=== PATIENT | female | born 1935 | race Caucasian/White ===

== ENCOUNTER 2020-05-23 09:46 | Inpatient (IN) | payer MEDICARE, SELFPAY ==
[2020-05-23] VITALS (8 sets, daily range): BP systolic 123–149; BP diastolic 50–74; PULSE 66–99; RESP 16–22; TEMP 36.4–37; O2SAT 93–100; BMI 31.0
--- NOTE | 2020-05-23 | CT_ITS ---
EXAMINATION: CT HEAD WITHOUT CONTRAST (STROKE PROTOCOL) CLINICAL INFORMATION: Stroke protocol. COMPARISON: January 15, 2020 TECHNIQUE: Contiguous axial imaging was performed from the skull base to vertex without intravenous administration of contrast. This CT examination was performed using dose optimization techniques as appropriate, variously including the following: *Automated exposure control *Adjustment of mA and/or kV according to patient size (this includes techniques or standardized protocols for targeted exams where dose is matched to indication/reason for exam; i.e. extremities or head) *Use of iterative reconstruction technique DLP: 805 mGy-cm FINDINGS: There is no intracranial hemorrhage, hematoma, or extra-axial fluid collection. The ventricles, sulci, and cisterns are age-related prominence. There is a large amount of periventricular white matter low density consistent with microangiopathy.. There is no acute infarct or mass lesion. The calvarium appears intact. There is no pneumocephalus or orbital emphysema. The visualized sinuses and middle ears and mastoid air cells show no significant mucosal thickening. There are no air-fluid levels. IMPRESSION: No acute intracranial pathology. 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 This critical result was discussed with Ama Segovia at 9:50 AM hours on May 23, 2020. It was ascertained that the content and urgency of the report was understood at the time of direct communication.
--- NOTE | 2020-05-23 | CT_ITS ---
EXAMINATION: CT CHEST WITHOUT CONTRAST CLINICAL INFORMATION: Fall COMPARISON: March 18, 2020 TECHNIQUE: Multidetector volumetric CT imaging of the chest was done. Axial MIP volume rendering provided. Sagittal and coronal reformatted images were obtained. This CT examination was performed using dose optimization techniques as appropriate, variously including the following: *Automated exposure control *Adjustment of mA and/or kV according to patient size (this includes techniques or standardized protocols for targeted exams where dose is matched to indication/reason for exam; i.e. extremities or head) *Use of iterative reconstruction technique DLP: 350 mGy-cm FINDINGS: LUNGS: There are bilateral changes of centrilobular and paraseptal emphysema most prominent within the upper lobes bilaterally. There are some regions of nonspecific groundglass opacity present. There is a region of more prominent bronchial wall thickening and possible acute interstitial disease seen within the posterior aspect of the left upper lobe and superior segment of the left lower lobe which could be related to atelectatic change or acute interstitial lung disease. There is some mild cylindrical bronchiectasis present bilaterally with some interstitial scarring. There are some scattered calcified granulomas present. There are some sub-4 mm density is noted. Central airways patent. MEDIASTINUM: Heart normal size. No thoracic aortic aneurysm. There is moderate calcified plaque involving the thoracic aorta with nonocclusive plaque in the aortic arch. Coronary artery calcification is present. No mediastinal or hilar lymphadenopathy. No pericardial effusion. PLEURA: There is no pleural effusion. No pleural mass or thickening. AXILLA: No lymphadenopathy. UPPER ABDOMEN: Status post cholecystectomy. No adrenal gland masses. OSSEOUS STRUCTURES: Status post right shoulder surgery. There is multilevel degenerative marginal spurring and bridging or vertebral bodies within the thoracic spine. There are some stable approximately 50% anterior vertebral body fractures T5 and T6. Multiple endplate irregularities are present within the remainder of the visualized spine. IMPRESSION: Significant changes of emphysema as described. Interstitial lung disease some of which appears to be acute within the posterior left upper lobe and superior segment of the left lower lobe. Old granulomatous disease. Degenerative change of the spine as described.
--- NOTE | 2020-05-23 | CT_ITS ---
EXAMINATION: CT CERVICAL SPINE WITHOUT CONTRAST CLINICAL INFORMATION: Fall COMPARISON: June 05, 2019 TECHNIQUE: CT cervical spine with coronal and sagittal reconstruction. This CT examination was performed using dose optimization techniques as appropriate, variously including the following: *Automated exposure control *Adjustment of mA and/or kV according to patient size (this includes techniques or standardized protocols for targeted exams where dose is matched to indication/reason for exam; i.e. extremities or head) *Use of iterative reconstruction technique DLP: 405 mGy-cm FINDINGS: No acute cervical spine fracture identified. No abnormal prevertebral soft tissue swelling. Paraspinal muscle/fat planes intact. There is some pannus calcification present dorsal aspect of the dens. There is some cystic change seen within the dens. There appears be fusion of the posterior elements of C3 and C4. There is facet arthropathy seen bilaterally C2-C5. There is some posterior neural foraminal narrowing at multiple levels related to this. There is a left submandibular soft tissue mass measuring approximately 3.1 x 1.9 x 2.4 cm in size. This is without significant change dating back to February 11, 2015. Pterygoid plates intact. There are a few opacified left mastoid air cells. IMPRESSION: No acute cervical spine fracture. Cervical spondylosis as described. Essentially stable soft tissue density left submandibular region.
--- NOTE | 2020-05-23 09:35 | ECG_ITS ---
Test Reason : ?STROKE Blood Pressure : / mmHG Vent. Rate : 074 BPM Atrial Rate : 074 BPM P-R Int : 158 ms QRS Dur : 076 ms QT Int : 400 ms P-R-T Axes : 040 -18 010 degrees QTc Int : 444 ms Normal sinus rhythm Moderate voltage criteria for LVH, may be normal variant Borderline ECG When compared with ECG of 16-MAY-2020 01:43, No significant change was found Referred By: Alisson Lyn Electronically Signed By:STEPHEN DAVIDSON
--- NOTE | 2020-05-23 09:37 | ED_ITS ---
HPI - Neuro Symptoms/Deficit General Chief Complaint: Stroke Stated Complaint: stroke Time Seen by Provider: 05/23/20 09:56 Source: EMS Mode of arrival: EMS Limitations: altered mental status History of Present Illness HPI Narrative: neighbor found her on the ground at this time altered last known normal unknown, hx of same in past, patient is sleepy on arrival to ED Onset (ago): unknown Timing confirmed by: other (neighbor) Location: other ([facility]) History of same: Yes Severity: moderate Relieving factors: none Exacerbating factors: none Associated symptoms: confusion and weakness Treatments Prior to Arrival: none Related Data Allergies Allergy/AdvReac Type Severity Reaction Status Date / Time codeine [Codeine] Allergy Mild HEADACHE, Unverified 05/07/20 15:50 RASH, NAUSEA baclofen Allergy Unknown tremors Verified 04/01/20 00:00 codeine Allergy Unknown rash, Uncoded 06/20/17 00:00 vomiting, [place] Codeine Sulfate Allergy Unknown Uncoded 04/01/20 00:00 eggs Allergy Unknown Uncoded 06/20/17 00:00 Review of Systems Review of Systems: ROS unable to be obtained due to altered mental status [facility] Past Medical History Attestation statement: The following information was validated with the patient. Source: old records reviewed Medical History (Updated 05/23/20 @ 12:32 by Alisson Lyn DO) Anxiety CAD (coronary artery disease) Carpal tunnel syndrome Chronic back pain COPD (chronic obstructive pulmonary disease) CVA (cerebral vascular accident) Diabetes HTN (hypertension) Hyperlipemia Nonepileptic episode Restless leg Surgical History (Updated 05/23/20 @ 09:43 by Alisson Lyn DO) H/O carotid endarterectomy S/P cholecystectomy Social History Social History (Updated 05/23/20 @ 09:41 by Alisson Lyn DO) Alcohol intake: never Smoking Status: Former smoker Advance Directives: No Advance Directives Information Provided: No Physical Exam Vital Signs and I&O and Narrative: Vital Signs and I&O: Vital Signs Temp 98.6 F 05/23/20 10:47 Pulse 66 05/23/20 10:47 Resp 16 05/23/20 10:47 BP 144/56 H 05/23/20 10:47 Pulse Ox 95 05/23/20 10:47 Intake & Output 05/22/20 05/23/20 05/23/20 18:59 06:59 18:59 Weight 77 kg Body Mass Index 31.0 Appearance: Somnolent. Oriented X2. No acute distress. Eyes: Pupils equal, round and reactive to light. ENT: dry MM. Neck: Normal inspection. Neck supple. CVS: Normal heart rate and rhythm. Pulses normal. Respiratory: No respiratory distress. Breath sounds decreased bilaterally Abdomen: Soft and nontender. Skin: Skin warm and dry. Normal skin color. Normal skin turgor. Extremities: No lower extremity edema. No lower extremity edema. Neuro: somnolent oriented x 2. no new motor deficitis mild L sided drift and mild L sided lower facial droop. No sensory deficit. but given AMS it is not reliable seems to be moving all extremities and following commands Course Reevaluation(s) Reevaluation #1: ABG: ph 7.43 pCO2 44 PO2 64 HCO3 28 BE 4.2 Reevaluation #2: lower back at this time but much more awake, unsure of what happened states she got up to use bathroom then doesn't remember anything until now, neighbor found her down unsure if this was syncope, she has underlying pseudoseizures but with lactic acid did she seizure, given empiric rocephin as well but no obvious infection at this time, ?new GGO on CT chest MDM - Neuro Symptoms/Deficit MDM Narrative Medical decision making narrative: frequent presentation of AMS being found down, here with same no obvious trauma at this time will need labs, cultures, CT scan of head and neck for trauma, given unknown last well time and found down without new focal deficits not a candidate for tPa Lab Data Result diagrams: 05/23/20 10:03 05/23/20 10:04 Labs: Lab Results 05/23/20 05/23/20 05/23/20 Range/Units 09:47 09:47 10:03 WBC 12.9 H (4.8-10.8) X10*3/uL RBC 4.22 (4.20-5.50) X10*6/uL Hgb 9.8 L (12.0-16.0) g/dl Hct 33.9 L (37-47) % MCV 80.3 (80-98) fL MCH 23.2 L (27.0-33.0) pg MCHC 28.9 L (31.0-35.0) g/dl RDW 21.2 H (11.0-16.0) % Plt Count 326 (160-400) X10*3/uL MPV 10.1 (9.4-12.3) fL Immature Gran % (Auto) 0.9 H (0.0-0.4) % Neut % (Auto) 71.3 (45-73) % Lymph % (Auto) 18.9 L (20-40) % Mccreary % (Auto) 6.7 (2-11) % Eos % (Auto) 2.0 (0-4) % Baso % (Auto) 0.2 (0-2) % Neut # (Auto) 9.2 H (2.0-8.3) X10*3/uL Lymph # (Auto) 2.4 (1.2-4.9) X10*3/uL Mccreary # (Auto) 0.9 (0.1-1.2) X10*3/uL Eos # (Auto) 0.3 (0.0-0.4) X10*3/uL Baso # (Auto) 0.0 (0.0-0.2) X10*3/uL Abs Immat Gran (auto) 0.12 H (0.00-0.03) X10*3/uL Absolute Nucleated RBC 0.000 (0.0-0.012) X10*3/uL Nucleated RBC % (auto) 0.0 (0.0-0.2) /100WBC PT (10.8-13.0) SEC Whole Blood PT 11.6 (11.1-13.5) sec INR (0.9-1.1) Whole Blood INR 1.0 (0.9-1.1) APTT (24.1-38.0) SEC ABG pH (7.35-7.45) ABG pCO2 (32-45) mmhg ABG pO2 (83-108) mmhg ABG HCO3 (22-26) mmol/l ABG O2 Saturation % ABG Base Excess Oxygen Given Sodium (135-145) mmol/L Potassium (3.3-5.1) mmol/l Chloride (96-108) mmol/L Carbon Dioxide (22-29) mmol/L Anion Gap (12-20) BUN (9-16) mg/dL Creatinine (0.5-1.4) mg/dL Estim Creat Clear Calc Estimated GFR POC Glucose 259 H (60-115) mg/dL Random Glucose (60-115) mg/dL Lactic Acid (0.5-2.0) mmol/L Calcium (8.4-10.2) mg/dL Magnesium (1.6-2.6) mg/dL Total Bilirubin (0.0-1.0) mg/dL Direct Bilirubin (0.0-0.5) mg/dL AST (5-31) U/L ALT (0-31) U/L Alkaline Phosphatase (39-117) U/L Ammonia (13-55) umol/L Total Creatine Kinase (26-140) U/L Troponin I High Sens (<3.5-17.0) ng/L B-Natriuretic Peptide (<100) pg/mL Total Protein (6.5-8.0) g/dL Albumin (3.5-5.0) g/dL Lipase (8-78) U/L Urine Color Urine Appearance Urine pH (5.0-8.0) Ur Specific Helper (1.005-1.025) Urine Protein (NEG-TRACE) MG/DL Urine Glucose (UA) (NEG) MG/DL Urine Ketones (NEG) MG/DL Urine Blood (NEG) Urine Nitrite (NEG) Ur Leukocyte Esterase (NEG) Urine RBC (0) /HPF Urine WBC (0-4) /HPF Ur Squamous Epith Cells /LPF Ur Renal Epithelial Cell /LPF Urine Bacteria /LPF 05/23/20 05/23/20 05/23/20 Range/Units 10:03 10:03 10:04 WBC (4.8-10.8) X10*3/uL RBC (4.20-5.50) X10*6/uL Hgb (12.0-16.0) g/dl Hct (37-47) % MCV (80-98) fL MCH (27.0-33.0) pg MCHC (31.0-35.0) g/dl RDW (11.0-16.0) % Plt Count (160-400) X10*3/uL MPV (9.4-12.3) fL Immature Gran % (Auto) (0.0-0.4) % Neut % (Auto) (45-73) % Lymph % (Auto) (20-40) % Mccreary % (Auto) (2-11) % Eos % (Auto) (0-4) % Baso % (Auto) (0-2) % Neut # (Auto) (2.0-8.3) X10*3/uL Lymph # (Auto) (1.2-4.9) X10*3/uL Mccreary # (Auto) (0.1-1.2) X10*3/uL Eos # (Auto) (0.0-0.4) X10*3/uL Baso # (Auto) (0.0-0.2) X10*3/uL Abs Immat Gran (auto) (0.00-0.03) X10*3/uL Absolute Nucleated RBC (0.0-0.012) X10*3/uL Nucleated RBC % (auto) (0.0-0.2) /100WBC PT 11.6 (10.8-13.0) SEC Whole Blood PT (11.1-13.5) sec INR 1.0 (0.9-1.1) Whole Blood INR (0.9-1.1) APTT 27.0 (24.1-38.0) SEC ABG pH (7.35-7.45) ABG pCO2 (32-45) mmhg ABG pO2 (83-108) mmhg ABG HCO3 (22-26) mmol/l ABG O2 Saturation % ABG Base Excess Oxygen Given Sodium 139 (135-145) mmol/L Potassium 3.4 (3.3-5.1) mmol/l Chloride 95 L (96-108) mmol/L Carbon Dioxide 30 H (22-29) mmol/L Anion Gap 17 (12-20) BUN 44 H (9-16) mg/dL Creatinine 1.37 (0.5-1.4) mg/dL Estim Creat Clear Calc 30.3 Estimated GFR 37 POC Glucose (60-115) mg/dL Random Glucose 275 H (60-115) mg/dL Lactic Acid (0.5-2.0) mmol/L Calcium 9.0 (8.4-10.2) mg/dL Magnesium 1.5 L (1.6-2.6) mg/dL Total Bilirubin 0.5 (0.0-1.0) mg/dL Direct Bilirubin 0.3 (0.0-0.5) mg/dL AST 71 H (5-31) U/L ALT 55 H (0-31) U/L Alkaline Phosphatase 114 (39-117) U/L Ammonia (13-55) umol/L Total Creatine Kinase 37 (26-140) U/L Troponin I High Sens (<3.5-17.0) ng/L B-Natriuretic Peptide (<100) pg/mL Total Protein 6.6 (6.5-8.0) g/dL Albumin 3.8 (3.5-5.0) g/dL Lipase 8 (8-78) U/L Urine Color YELLOW Urine Appearance CLEAR Urine pH 6.5 (5.0-8.0) Ur Specific Helper 1.010 (1.005-1.025) Urine Protein NEG (NEG-TRACE) MG/DL Urine Glucose (UA) NEG (NEG) MG/DL Urine Ketones NEG (NEG) MG/DL Urine Blood NEG (NEG) Urine Nitrite NEG (NEG) Ur Leukocyte Esterase NEG (NEG) Urine RBC 0 (0) /HPF Urine WBC 0 (0-4) /HPF Ur Squamous Epith Cells 1+ /LPF Ur Renal Epithelial Cell 1+ /LPF Urine Bacteria NONE /LPF 05/23/20 05/23/20 05/23/20 Range/Units 10:04 10:04 10:04 WBC (4.8-10.8) X10*3/uL RBC (4.20-5.50) X10*6/uL Hgb (12.0-16.0) g/dl Hct (37-47) % MCV (80-98) fL MCH (27.0-33.0) pg MCHC (31.0-35.0) g/dl RDW (11.0-16.0) % Plt Count (160-400) X10*3/uL MPV (9.4-12.3) fL Immature Gran % (Auto) (0.0-0.4) % Neut % (Auto) (45-73) % Lymph % (Auto) (20-40) % Mccreary % (Auto) (2-11) % Eos % (Auto) (0-4) % Baso % (Auto) (0-2) % Neut # (Auto) (2.0-8.3) X10*3/uL Lymph # (Auto) (1.2-4.9) X10*3/uL Mccreary # (Auto) (0.1-1.2) X10*3/uL Eos # (Auto) (0.0-0.4) X10*3/uL Baso # (Auto) (0.0-0.2) X10*3/uL Abs Immat Gran (auto) (0.00-0.03) X10*3/uL Absolute Nucleated RBC (0.0-0.012) X10*3/uL Nucleated RBC % (auto) (0.0-0.2) /100WBC PT (10.8-13.0) SEC Whole Blood PT (11.1-13.5) sec INR (0.9-1.1) Whole Blood INR (0.9-1.1) APTT (24.1-38.0) SEC ABG pH (7.35-7.45) ABG pCO2 (32-45) mmhg ABG pO2 (83-108) mmhg ABG HCO3 (22-26) mmol/l ABG O2 Saturation % ABG Base Excess Oxygen Given Sodium (135-145) mmol/L Potassium (3.3-5.1) mmol/l Chloride (96-108) mmol/L Carbon Dioxide (22-29) mmol/L Anion Gap (12-20) BUN (9-16) mg/dL Creatinine (0.5-1.4) mg/dL Estim Creat Clear Calc Estimated GFR POC Glucose (60-115) mg/dL Random Glucose (60-115) mg/dL Lactic Acid 3.9 H* (0.5-2.0) mmol/L Calcium (8.4-10.2) mg/dL Magnesium (1.6-2.6) mg/dL Total Bilirubin (0.0-1.0) mg/dL Direct Bilirubin (0.0-0.5) mg/dL AST (5-31) U/L ALT (0-31) U/L Alkaline Phosphatase (39-117) U/L Ammonia 39 (13-55) umol/L Total Creatine Kinase (26-140) U/L Troponin I High Sens 6.6 (<3.5-17.0) ng/L B-Natriuretic Peptide 30 (<100) pg/mL Total Protein (6.5-8.0) g/dL Albumin (3.5-5.0) g/dL Lipase (8-78) U/L Urine Color Urine Appearance Urine pH (5.0-8.0) Ur Specific Helper (1.005-1.025) Urine Protein (NEG-TRACE) MG/DL Urine Glucose (UA) (NEG) MG/DL Urine Ketones (NEG) MG/DL Urine Blood (NEG) Urine Nitrite (NEG) Ur Leukocyte Esterase (NEG) Urine RBC (0) /HPF Urine WBC (0-4) /HPF Ur Squamous Epith Cells /LPF Ur Renal Epithelial Cell /LPF Urine Bacteria /LPF 05/23/20 Range/Units 10:30 WBC (4.8-10.8) X10*3/uL RBC (4.20-5.50) X10*6/uL Hgb (12.0-16.0) g/dl Hct (37-47) % MCV (80-98) fL MCH (27.0-33.0) pg MCHC (31.0-35.0) g/dl RDW (11.0-16.0) % Plt Count (160-400) X10*3/uL MPV (9.4-12.3) fL Immature Gran % (Auto) (0.0-0.4) % Neut % (Auto) (45-73) % Lymph % (Auto) (20-40) % Mccreary % (Auto) (2-11) % Eos % (Auto) (0-4) % Baso % (Auto) (0-2) % Neut # (Auto) (2.0-8.3) X10*3/uL Lymph # (Auto) (1.2-4.9) X10*3/uL Mccreary # (Auto) (0.1-1.2) X10*3/uL Eos # (Auto) (0.0-0.4) X10*3/uL Baso # (Auto) (0.0-0.2) X10*3/uL Abs Immat Gran (auto) (0.00-0.03) X10*3/uL Absolute Nucleated RBC (0.0-0.012) X10*3/uL Nucleated RBC % (auto) (0.0-0.2) /100WBC PT (10.8-13.0) SEC Whole Blood PT (11.1-13.5) sec INR (0.9-1.1) Whole Blood INR (0.9-1.1) APTT (24.1-38.0) SEC ABG pH 7.44 (7.35-7.45) ABG pCO2 44 (32-45) mmhg ABG pO2 64 L (83-108) mmhg ABG HCO3 29 H (22-26) mmol/l ABG O2 Saturation 91.2 % ABG Base Excess 4.2 Oxygen Given 3 L Sodium (135-145) mmol/L Potassium (3.3-5.1) mmol/l Chloride (96-108) mmol/L Carbon Dioxide (22-29) mmol/L Anion Gap (12-20) BUN (9-16) mg/dL Creatinine (0.5-1.4) mg/dL Estim Creat Clear Calc Estimated GFR POC Glucose (60-115) mg/dL Random Glucose (60-115) mg/dL Lactic Acid (0.5-2.0) mmol/L Calcium (8.4-10.2) mg/dL Magnesium (1.6-2.6) mg/dL Total Bilirubin (0.0-1.0) mg/dL Direct Bilirubin (0.0-0.5) mg/dL AST (5-31) U/L ALT (0-31) U/L Alkaline Phosphatase (39-117) U/L Ammonia (13-55) umol/L Total Creatine Kinase (26-140) U/L Troponin I High Sens (<3.5-17.0) ng/L B-Natriuretic Peptide (<100) pg/mL Total Protein (6.5-8.0) g/dL Albumin (3.5-5.0) g/dL Lipase (8-78) U/L Urine Color Urine Appearance Urine pH (5.0-8.0) Ur Specific Helper (1.005-1.025) Urine Protein (NEG-TRACE) MG/DL Urine Glucose (UA) (NEG) MG/DL Urine Ketones (NEG) MG/DL Urine Blood (NEG) Urine Nitrite (NEG) Ur Leukocyte Esterase (NEG) Urine RBC (0) /HPF Urine WBC (0-4) /HPF Ur Squamous Epith Cells /LPF Ur Renal Epithelial Cell /LPF Urine Bacteria /LPF ECG Data Attestation: I personally reviewed and interpreted this ECG as follows: ECG interpretation date: 05/23/20 ECG interpretation time: 09:56 Interpretation: Rate: 74 Rhythm: NSR [place]: left, LVH Normal P waves. Normal REBEL. Normal QRS complex. ST T wave : normal qTC: normal prior studies: no change, no ischemia The study has been interpreted contemporaneously by me. . NIH Stroke Scale Internal: Initial- Upon Arrival Level of Consciousness: Not Alert; but arousable by minor stimulation Level of Consciousness Questions: Answers one question correctly Level of Consciousness Commands: Performs both tasks correctly Best Gaze: Normal Visual: No visual loss Facial Palsy: Minor paralyis Motor Arm (Right): No drift Motor Arm (Left): Drift Motor Leg (Right): No drift Motor Leg (Left): Drift Limb Ataxia: Absent Sensory: Normal Best Language: No aphasia Dysarthia: Mild to moderate dysarthria Extinction and Inattention: No abnormality Score: 6 Discharge Plan Discharge Clinical Impression: Acidosis, lactic, Acute confusion Syncope Qualifiers: Syncope type: unspecified Qualified Code(s): R55 - Syncope and collapse Patient Disposition: Admitted As Inpatient
[2020-05-23 09:57] LABS: Prothrombin Time Whole Bld POC 11.6 sec (11.1-13.5)
[2020-05-23 09:59] LABS: Glucose, Whole Blood 259 mg/dL (60-115)
[2020-05-23 10:30] LABS: MANUAL DIFF FLAG NO
[2020-05-23 10:36] LABS: Glucose Urine UA NEG (NEG); Leukocyte Esterase Urine NEG (NEG); Nitrite Urine NEG (NEG); PH 6.5 (5.0-8.0); Urine Blood NEG (NEG); Urine Ketones NEG (NEG); Urine Protein NEG (NEG-TRACE)
[2020-05-23 10:38] LABS: Basophils Percent Auto 0.2 % (0-2); Eosinophils Absolute Auto 0.3 X10*3/uL (0.0-0.4); Hematocrit 33.9 % (37-47); Hemoglobin 9.8 g/dl (12.0-16.0); Imm Gran Abs Auto 0.12 X10*3/uL (0.00-0.03); Imm Gran Pct Auto 0.9 % (0.0-0.4); Lymphocytes Absolute Auto 2.4 X10*3/uL (1.2-4.9); Lymphocytes Percent Auto 18.9 % (20-40); Mean Corpuscular HGB Conc 28.9 g/dl (31.0-35.0); Mean Corpuscular Hemoglobin 23.2 pg (27.0-33.0); Mean Corpuscular Volume 80.3 fL (80-98); Mean Platelet Volume 10.1 fL (9.4-12.3); Monocytes Absolute Auto 0.9 X10*3/uL (0.1-1.2); Monocytes Percent Auto 6.7 % (2-11); Neutrophils Absolute Auto 9.2 X10*3/uL (2.0-8.3); Neutrophils Percent Auto 71.3 % (45-73); Platelet Count 326 X10*3/uL (160-400); Prothrombin Time 11.6 SEC (10.8-13.0); Red Blood Count 4.22 X10*6/uL (4.20-5.50); Red Cell Distribution Width 21.2 % (11.0-16.0); White Blood Count 12.9 X10*3/uL (4.8-10.8)
[2020-05-23 10:40] LABS: ABG PCO2 44 mmhg (32-45); Base Excess ABG 4.2; HCO3 ABG 29 mmol/l (22-26); Oxygen Saturation ABG 91.2 %; PO2 ABG 64 mmhg (83-108); Pt Ventilation O2% 3 L; pH ABG 7.44 (7.35-7.45)
[2020-05-23 10:45] LABS: Ammonia 39 umol/L (13-55)
[2020-05-23 10:49] LABS: Appearance Urine CLEAR; Color Urine YELLOW
[2020-05-23 10:53] LABS: RBC Urine 0 /HPF (0); Renal Epithelial Cells Urine 1+ /LPF; Squamous Epithelial Cell Urine 1+ /LPF; WBC Urine 0 /HPF (0-4)
[2020-05-23 10:56] LABS: Alanine Aminotransferase 55 U/L (0-31); Albumin Level 3.8 g/dL (3.5-5.0); Alkaline Phosphatase 114 U/L (39-117); Anion Gap 17 (12-20); Aspartate Amino Transferase 71 U/L (5-31); Bilirubin Direct 0.3 mg/dL (0.0-0.5); Bilirubin Total 0.5 mg/dL (0.0-1.0); Blood Urea Nitrogen 44 mg/dL (9-16); Carbon Dioxide 30 mmol/L (22-29); Chloride 95 mmol/L (96-108); Creatinine Clr Calc Pharmacy 30.3; Estimated Glomerular Filt Rate 37; Glucose Random 275 mg/dL (60-115); Lipase 8 U/L (8-78); Magnesium 1.5 mg/dL (1.6-2.6); Potassium 3.4 mmol/l (3.3-5.1); Sodium 139 mmol/L (135-145); Total Protein 6.6 g/dL (6.5-8.0)
[2020-05-23 10:58] LABS: B Type Natriuretic Peptide 30 pg/mL (<100); Troponin-I High Sensitivity 6.6 ng/L (<3.5-17.0)
[2020-05-23 11:01] LABS: Lactic Acid 3.9 mmol/L (0.5-2.0)
--- NOTE | 2020-05-23 11:18 | PC.NURSE ---
pt bed was soiled with urine, pt cleaned up, brief taken off. new linen and hospital gown. pt repositioned and given call haskins.
[2020-05-23] MEDS: Magnesium Sulfate/H2O 2 GM/50 ML PIGGYBACK IV (11:54)
[2020-05-23] MEDS: cefTRIAXone sodium 1 GM in 0.9 % Sodium Chloride 50 ML IV (11:54)
[2020-05-23] MEDS: 0.9 % Sodium Chloride 500 ML 1000 ML IV (11:55)
[2020-05-23 12:27] LABS: Reflex Lactate? Lactic Acid Added
--- NOTE | 2020-05-23 13:09 | PM.IMHP ---
History of Present Illness Date of Service: 05/23/20 Chief Complaint: Found on floor This is a 84-year-old female who was brought to the emergency department initially as a stroke alert due to left-sided weakness noted by EMS. However this is noted to be chronic. patient is a poor historian and was difficult to obtain accurate history. She states she woke up this morning and got out of bed and then woke up on the floor. Luckily she had her cell phone with her and was able to call her son. Her son must have called 911 and she was brought to the emergency department for evaluation. She complains of back pain which is chronic. She denies any other specific complaints. Her workup was significant for an elevated lactic acid of 3.9. For this reason there was concern that she may have had a seizure. The decision was made to admit her overnight for observation. Review of Systems Review of Systems: Yes all other systems are reviewed and are negative Constitutional: Constitutional: Denies chills and Denies fever(s) Cardiovascular: Cardiovascular: Denies chest pain and Denies dyspnea Respiratory: Respiratory: Denies dyspnea [facility] Medical History (Updated 05/23/20 @ 14:14 by SHYLA Melgoza) Anxiety CAD (coronary artery disease) Carpal tunnel syndrome Chronic back pain Chronic respiratory failure with hypoxia, on home O2 therapy COPD (chronic obstructive pulmonary disease) CVA (cerebral vascular accident) Diabetes Diastolic CHF HTN (hypertension) Hyperlipemia Interstitial lung disease Nonepileptic episode Restless leg Functional capacity: uses cane/walker Pertinent family history: Father had a history of lung cancer Mother had a history of breast cancer Surgical History (Updated 05/23/20 @ 13:26 by SHYLA Melgoza) H/O carotid endarterectomy History of total left hip arthroplasty S/P cholecystectomy Social History (Updated 05/23/20 @ 13:26 by SHYLA Melgoza) Household Members: Family Household Members Other:: son Alcohol intake: unknown Smoking Status: Former smoker Use of substances other than those prescribed or required for medical reasons: No Advance Directives: No Advance Directives Information Provided: No Meds Allergies Allergy/AdvReac Type Severity Reaction Status Date / Time codeine [Codeine] Allergy Mild HEADACHE, Unverified 05/07/20 15:50 RASH, NAUSEA baclofen Allergy Unknown tremors Verified 04/01/20 00:00 codeine Allergy Unknown rash, Uncoded 06/20/17 00:00 vomiting, [place] Codeine Sulfate Allergy Unknown Uncoded 04/01/20 00:00 eggs Allergy Unknown Uncoded 06/20/17 00:00 Home Medications Medication Instructions Recorded Confirmed Type amlodipine 5 mg PO DAILY 05/23/20 05/23/20 History aspirin 81 mg PO DAILY 05/23/20 05/23/20 History clopidogrel 75 mg PO DAILY 05/23/20 05/23/20 History furosemide [Lasix] 40 mg PO DAILY 05/23/20 05/23/20 History gabapentin 100 mg PO TID 05/23/20 05/23/20 History glipizide 5 mg PO BID 05/23/20 05/23/20 History lorazepam 1 mg PO TID PRN 05/23/20 05/23/20 History metformin 500 mg PO BID 05/23/20 05/23/20 History oxycodone 10 mg PO Q6H PRN 05/23/20 05/23/20 History ranitidine HCl 150 mg BID 05/23/20 05/23/20 History ropinirole 3 mg PO DAILY 05/23/20 05/23/20 History sertraline 50 mg PO DAILY 05/23/20 05/23/20 History simvastatin 40 mg PO DAILY 05/23/20 05/23/20 History temazepam 15 mg PO BEDTIME PRN 05/23/20 05/23/20 History Physical Exam Vital Signs and Narrative: Vital Signs: Last Vital Signs Temp 98.6 F 05/23/20 10:47 Pulse 66 05/23/20 10:47 Resp 16 05/23/20 10:47 BP 144/56 H 05/23/20 10:47 Pulse Ox 95 05/23/20 10:47 Body Mass Index 31.0 Const: General: no acute distress and other ( sleepy, easily wakes to verbal stimuli) Orientation/consciousness: oriented to person and oriented to time Limitations: ambulation with walker HENMT: Head: Yes normocephalic and Yes atraumatic Eyes: Pupils: Equal, round and reactive pupils present Chest: Chest palpation & inspection: normal inspection of the chest Resp: Effort & Inspection: normal respiratory effort and no respiratory distress Auscultation: clear to auscultation bilaterally Cardio: Rate: regular rate Heart sounds: S1 normal heart sound present and S2 normal heart sound present GI: Palpation (GI): Soft to palpation and nontender Skin: General skin exam: ecchymosis (b/l upper extremities) Neuro: General: oriented to person and oriented to time Cranial nerves: Yes Equal, round and reactive pupils present Results Labs Labs: Laboratory Tests 05/23/20 05/23/20 05/23/20 09:47 09:47 10:03 WBC 12.9 H RBC 4.22 Hgb 9.8 L Hct 33.9 L MCV 80.3 MCH 23.2 L MCHC 28.9 L RDW 21.2 H Plt Count 326 MPV 10.1 Immature Gran % (Auto) 0.9 H Neut % (Auto) 71.3 Lymph % (Auto) 18.9 L [place] % (Auto) 6.7 Eos % (Auto) 2.0 Baso % (Auto) 0.2 Neut # (Auto) 9.2 H Lymph # (Auto) 2.4 [place] # (Auto) 0.9 Eos # (Auto) 0.3 Baso # (Auto) 0.0 Abs Immat Gran (auto) 0.12 H Absolute Nucleated RBC 0.000 Nucleated RBC % (auto) 0.0 PT Whole Blood PT 11.6 INR Whole Blood INR 1.0 APTT ABG pH ABG pCO2 ABG pO2 ABG HCO3 ABG O2 Saturation ABG Base Excess Oxygen Given Sodium Potassium Chloride Carbon Dioxide Anion Gap BUN Creatinine Estim Creat Clear Calc Estimated GFR POC Glucose 259 H Random Glucose Lactic Acid Calcium Magnesium Total Bilirubin Direct Bilirubin AST ALT Alkaline Phosphatase Ammonia Total Creatine Kinase Troponin I High Sens B-Natriuretic Peptide Total Protein Albumin Lipase Urine Color Urine Appearance Urine pH Ur Specific Wallace Urine Protein Urine Glucose (UA) Urine Ketones Urine Blood Urine Nitrite Ur Leukocyte Esterase Urine RBC Urine WBC Ur Squamous Epith Cells Ur Renal Epithelial Cell Urine Bacteria 05/23/20 05/23/20 05/23/20 10:03 10:03 10:04 WBC RBC Hgb Hct MCV MCH MCHC RDW Plt Count MPV Immature Gran % (Auto) Neut % (Auto) Lymph % (Auto) [place] % (Auto) Eos % (Auto) Baso % (Auto) Neut # (Auto) Lymph # (Auto) [place] # (Auto) Eos # (Auto) Baso # (Auto) Abs Immat Gran (auto) Absolute Nucleated RBC Nucleated RBC % (auto) PT 11.6 Whole Blood PT INR 1.0 Whole Blood INR APTT 27.0 ABG pH ABG pCO2 ABG pO2 ABG HCO3 ABG O2 Saturation ABG Base Excess Oxygen Given Sodium 139 Potassium 3.4 Chloride 95 L Carbon Dioxide 30 H Anion Gap 17 BUN 44 H Creatinine 1.37 Estim Creat Clear Calc 30.3 Estimated GFR 37 POC Glucose Random Glucose 275 H Lactic Acid Calcium 9.0 Magnesium 1.5 L Total Bilirubin 0.5 Direct Bilirubin 0.3 AST 71 H ALT 55 H Alkaline Phosphatase 114 Ammonia Total Creatine Kinase 37 Troponin I High Sens B-Natriuretic Peptide Total Protein 6.6 Albumin 3.8 Lipase 8 Urine Color YELLOW Urine Appearance CLEAR Urine pH 6.5 Ur Specific [place] 1.010 Urine Protein NEG Urine Glucose (UA) NEG Urine Ketones NEG Urine Blood NEG Urine Nitrite NEG Ur Leukocyte Esterase NEG Urine RBC 0 Urine WBC 0 Ur Squamous Epith Cells 1+ Ur Renal Epithelial Cell 1+ Urine Bacteria NONE 05/23/20 05/23/20 05/23/20 10:04 10:04 10:04 WBC RBC Hgb Hct MCV MCH MCHC RDW Plt Count MPV Immature Gran % (Auto) Neut % (Auto) Lymph % (Auto) [place] % (Auto) Eos % (Auto) Baso % (Auto) Neut # (Auto) Lymph # (Auto) [place] # (Auto) Eos # (Auto) Baso # (Auto) Abs Immat Gran (auto) Absolute Nucleated RBC Nucleated RBC % (auto) PT Whole Blood PT INR Whole Blood INR APTT ABG pH ABG pCO2 ABG pO2 ABG HCO3 ABG O2 Saturation ABG Base Excess Oxygen Given Sodium Potassium Chloride Carbon Dioxide Anion Gap BUN Creatinine Estim Creat Clear Calc Estimated GFR POC Glucose Random Glucose Lactic Acid 3.9 H* Calcium Magnesium Total Bilirubin Direct Bilirubin AST ALT Alkaline Phosphatase Ammonia 39 Total Creatine Kinase Troponin I High Sens 6.6 B-Natriuretic Peptide 30 Total Protein Albumin Lipase Urine Color Urine Appearance Urine pH Ur Specific Wallace Urine Protein Urine Glucose (UA) Urine Ketones Urine Blood Urine Nitrite Ur Leukocyte Esterase Urine RBC Urine WBC Ur Squamous Epith Cells Ur Renal Epithelial Cell Urine Bacteria 05/23/20 10:30 WBC RBC Hgb Hct MCV MCH MCHC RDW Plt Count MPV Immature Gran % (Auto) Neut % (Auto) Lymph % (Auto) [place] % (Auto) Eos % (Auto) Baso % (Auto) Neut # (Auto) Lymph # (Auto) [place] # (Auto) Eos # (Auto) Baso # (Auto) Abs Immat Gran (auto) Absolute Nucleated RBC Nucleated RBC % (auto) PT Whole Blood PT INR Whole Blood INR APTT ABG pH 7.44 ABG pCO2 44 ABG pO2 64 L ABG HCO3 29 H ABG O2 Saturation 91.2 ABG Base Excess 4.2 Oxygen Given 3 L Sodium Potassium Chloride Carbon Dioxide Anion Gap BUN Creatinine Estim Creat Clear Calc Estimated GFR POC Glucose Random Glucose Lactic Acid Calcium Magnesium Total Bilirubin Direct Bilirubin AST ALT Alkaline Phosphatase Ammonia Total Creatine Kinase Troponin I High Sens B-Natriuretic Peptide Total Protein Albumin Lipase Urine Color Urine Appearance Urine pH Ur Specific [place] Urine Protein Urine Glucose (UA) Urine Ketones Urine Blood Urine Nitrite Ur Leukocyte Esterase Urine RBC Urine WBC Ur Squamous Epith Cells Ur Renal Epithelial Cell Urine Bacteria Assessment and Plan (1) Unwitnessed fall: Status: Acute unclear if this represents syncope or possible seizure - check orthostatic blood pressures - cardiac monitoring to evaluate for arrhythmia - seizure precautions - neurology evaluation (2) Acidosis, lactic: Status: Acute possibly related to metformin hold metformin trend lactic acid (3) Diabetes: Status: Inactive hold metformin glipizide was discontinued on last admission will cover with sliding scale, POCs ADA diet (4) Hyperlipemia: Status: Inactive continue statin (5) CVA (cerebral vascular accident): Problem details: chronic L sided weakness and mild facial droop Status: Inactive continue aspirin, Plavix, statin (6) Diastolic CHF: Status: Inactive euvolemic continue home dose of Lasix monitor fluid status (7) Chronic respiratory failure with hypoxia, on home O2 therapy: Status: Inactive continue supplemental oxygen (8) HTN (hypertension): Status: Acute BP controlled Continue Norvasc Quality VTE Deep Vein Thrombosis/Pulmonary Embolism Present on Admission: No
[2020-05-23 15:48] LABS: ~Lactic Acid-LAB USE ONLY 1.8 mmol/L (0.5-2.0)
[2020-05-23 16:42] LABS: Glucose, Whole Blood 238 mg/dL (60-115)
[2020-05-23] MEDS: Gabapentin 100 MG CAPSULE PO ×2 (17:16→22:21)
[2020-05-23] MEDS: Enoxaparin Sodium 40 MG/0.4 ML SYRINGE SUBCUT (17:17)
[2020-05-23] MEDS: Insulin Lispro 100 UNIT/ML 3 ML VIAL SUBCUT ×3 (17:18→22:21)
[2020-05-23] MEDS: 0.9 % Sodium Chloride Flush 3 ML SYRINGE 2 ML IVFLUSH (17:19)
[2020-05-23] MEDS: Aspirin 81 MG TAB.CHEW PO (17:22)
[2020-05-23 21:16] LABS: Glucose, Whole Blood 412 mg/dL (60-115)
[2020-05-23] MEDS: Famotidine 20 MG TABLET PO (22:21)
[2020-05-24] VITALS (11 sets, daily range): BP systolic 120–185; BP diastolic 49–89; PULSE 60–85; RESP 18–20; TEMP 35.7–36.7; O2SAT 93–98
[2020-05-24] MEDS: Temazepam 15 MG CAPSULE PO (01:05)
[2020-05-24] MEDS: 0.9 % Sodium Chloride Flush 3 ML SYRINGE 2 ML IVFLUSH ×4 (04:35→21:29)
[2020-05-24 06:51] LABS: MANUAL DIFF FLAG NO
[2020-05-24 07:01] LABS: Basophils Percent Auto 0.3 % (0-2); Eosinophils Absolute Auto 0.3 X10*3/uL (0.0-0.4); Eosinophils Percent Auto 2.9 % (0-4); Hematocrit 29.5 % (37-47); Hemoglobin 8.6 g/dl (12.0-16.0); Imm Gran Abs Auto 0.07 X10*3/uL (0.00-0.03); Imm Gran Pct Auto 0.7 % (0.0-0.4); Lymphocytes Absolute Auto 2.2 X10*3/uL (1.2-4.9); Lymphocytes Percent Auto 20.6 % (20-40); Mean Corpuscular HGB Conc 29.2 g/dl (31.0-35.0); Mean Corpuscular Hemoglobin 23.2 pg (27.0-33.0); Mean Corpuscular Volume 79.5 fL (80-98); Mean Platelet Volume 10.2 fL (9.4-12.3); Monocytes Absolute Auto 0.7 X10*3/uL (0.1-1.2); Monocytes Percent Auto 6.7 % (2-11); Neutrophils Absolute Auto 7.3 X10*3/uL (2.0-8.3); Neutrophils Percent Auto 68.8 % (45-73); Platelet Count 278 X10*3/uL (160-400); Red Blood Count 3.71 X10*6/uL (4.20-5.50); Red Cell Distribution Width 20.9 % (11.0-16.0); White Blood Count 10.6 X10*3/uL (4.8-10.8)
[2020-05-24 08:13] LABS: Glucose, Whole Blood 169 mg/dL (60-115)
[2020-05-24] MEDS: Sertraline HCL 50 MG TABLET PO (08:25)
[2020-05-24] MEDS: rOPINIRole HCL 1 MG TABLET 3 MG PO (08:25)
[2020-05-24] MEDS: Insulin Lispro 100 UNIT/ML 3 ML VIAL SUBCUT ×4 (08:25→21:30)
[2020-05-24] MEDS: Famotidine 20 MG TABLET PO ×2 (08:26→21:29)
[2020-05-24] MEDS: Furosemide 40 MG TABLET PO (08:26)
[2020-05-24] MEDS: Clopidogrel Bisulfate 75 MG TABLET PO (08:26)
[2020-05-24] MEDS: Gabapentin 100 MG CAPSULE PO ×3 (08:26→21:30)
[2020-05-24] MEDS: amLODIPine Besylate 5 MG TABLET PO (08:26)
[2020-05-24] MEDS: Atorvastatin Calcium 20 MG TABLET PO (08:26)
--- NOTE | 2020-05-24 09:08 | MHC.CM.PN ---
Patient lives in a house with her Son/HCP/and she has several DME items: walker, transport chair, stair lift, shower bench. Patient's goal for dc is STR to [facility] choice[facility] or [facility], or [facility] [place]; CM has initiated and will follow for dc planning. IMM addressed with Patient and her Son and the original has been given to them and as copy has been placed on the chart. Patient was active with [facility] and [facility] for O2..
[2020-05-24 11:40] LABS: Glucose, Whole Blood 216 mg/dL (60-115)
--- NOTE | 2020-05-24 14:46 | HO.PM.IMPN ---
Subjective Subjective Date of Service: 05/24/20 Interval History: patient seen and examined at bedside patient fregoso denies any complaint Physical Exam Vital Signs and I&O and Narrative: Vital Signs and I&O: Vital Signs Temp 97.9 F 05/24/20 14:33 Pulse 79 05/24/20 14:33 Resp 20 05/24/20 14:33 BP 137/72 05/24/20 14:33 Pulse Ox 97 05/24/20 14:33 Intake & Output 05/23/20 05/24/20 05/24/20 18:59 06:59 18:59 Intake Total 780 / 960 180 / 960 180 / 180 Output Total 100 / 100 500 / 500 Balance 780 / 860 80 / 860 -320 / -320 Urine Output (Aver age ml/kg/hr) 0.11 0.54 Weight 77 kg Intake: Intake, Oral Loda unt 180 / 360 180 / 360 Intake, Intraper itoneal Amount 180 / 180 Intake, IV Amoun t 600 / 600 0.9 % Sodium C hloride 500 ml @ 500 / 500 1000 mls/hr IV .Q30M NAGI Rx#: [id number] Magnesium Sulf ate/H2O 2 gm In 50 / 50 50 ml @ 50 mls /hr IV ONCE ONE Rx#:[id number] cefTRIAXone so dium 1 gm In 0.9 50 / 50 % Sodium Chlor dione 50 ml @ 100 mls/hr IV ONCE ONE Rx#: [id number] Output: Output, Urine Am ount 100 / 100 500 / 500 Other: Breakfast % Eate n 50% Lunch % Eaten 50% Dinner % Eaten 100% Evening Snack % Eaten 100 Number of Incont inent Voids 3 Number of Unmeas ured Voids 1 1 Number of Bowel Movements 1 1 Urine Bedside Commode Bedside Commode Urine Color Straw Yellow Last Bowel Movem ent 05/23/20 Stool Bedside Commode Bedside Commode Stool Color Dark Brown Dark Brown Stool Consistenc y Formed Pasty Body Mass Index 31.0 Appearance: Somnolent. Oriented X2. No acute distress. Eyes: Pupils equal, round and reactive to light. ENT: dry MM. Neck: Normal inspection. Neck supple. CVS: Normal heart rate and rhythm. Pulses normal. Respiratory: No respiratory distress. Breath sounds decreased bilaterally Abdomen: Soft and nontender. Skin: Skin warm and dry. Normal skin color. Normal skin turgor. Extremities: No lower extremity edema. No lower extremity edema. Neuro: somnolent oriented x 2. no new motor deficitis mild L sided drift and mild L sided lower facial droop. No sensory deficit. but given AMS it is not reliable seems to be moving all extremities and following commands Const: General: no acute distress and other ( sleepy, easily wakes to verbal stimuli) Orientation/consciousness: oriented to person and oriented to time Limitations: ambulation with walker HENMT: Head: Yes normocephalic and Yes atraumatic Eyes: Pupils: Equal, round and reactive pupils present Chest: Chest palpation & inspection: normal inspection of the chest Resp: Effort & Inspection: normal respiratory effort and no respiratory distress Auscultation: clear to auscultation bilaterally Cardio: Rate: regular rate Heart sounds: S1 normal heart sound present and S2 normal heart sound present GI: Palpation (GI): Soft to palpation and nontender Skin: General skin exam: ecchymosis (b/l upper extremities) Neuro: General: oriented to person and oriented to time Cranial nerves: Yes Equal, round and reactive pupils present Objective Data Current Medications Generic Name Dose Route Start Last Admin Trade Name Freq PRN Reason Stop Dose Admin Acetaminophen 650 mg 05/23/20 15:36 Acetaminophen 650 Mg Supp.Rect AK Q6H PRN Pain and Fever Amlodipine Besylate 5 mg 05/24/20 09:00 05/24/20 08:26 Amlodipine Besylate 5 Mg Tablet PO 5 mg DAILY NAGI Administration Protocol Atorvastatin Calcium 20 mg 05/24/20 09:00 05/24/20 08:26 Atorvastatin Calcium 20 Mg Tablet PO 20 mg DAILY NAGI Administration Clopidogrel Bisulfate 75 mg 05/24/20 09:00 05/24/20 08:26 Clopidogrel Bisulfate 75 Mg Tablet PO 75 mg DAILY NAGI Administration Docusate Sodium 100 mg 05/23/20 15:36 Docusate Sodium 100 Mg Capsule PO DAILY PRN Constipation Enoxaparin Sodium 40 mg 05/23/20 16:00 05/23/20 17:17 Enoxaparin Sodium 40 Mg/0.4 Ml Syringe SUBCUT 40 mg Q24H NAGI Administration Famotidine 20 mg 05/23/20 21:00 05/24/20 08:26 Famotidine 20 Mg Tablet PO 20 mg BID ANGI Administration Furosemide 40 mg 05/24/20 09:00 05/24/20 08:26 Furosemide 40 Mg Tablet PO 40 mg DAILY NAGI Administration Protocol Gabapentin 100 mg 05/23/20 15:36 05/24/20 08:26 Gabapentin 100 Mg Capsule PO 100 mg TID NAGI Administration Lorazepam 1 mg 05/23/20 15:36 Lorazepam 1 Mg Tablet PO TID PRN Anxiety Ondansetron HCl 4 mg 05/23/20 15:36 Ondansetron Hcl 4 Mg/2 Ml Vial IVPUSH Q8H PRN Nausea and Vomiting Ropinirole HCl 3 mg 05/24/20 09:00 05/24/20 08:25 Ropinirole Hcl 1 Mg Tablet PO 3 mg DAILY NAGI Administration Sertraline HCl 50 mg 05/24/20 09:00 05/24/20 08:25 Sertraline Hcl 50 Mg Tablet PO 50 mg DAILY NAGI Administration Sodium Chloride 2 ml 05/23/20 16:00 05/24/20 07:32 0.9 % Sodium Chloride Flush 3 Ml Syringe IVFLUSH 2 ml QSHIFT NAGI Administration Temazepam 15 mg 05/23/20 15:36 05/24/20 01:05 Temazepam 15 Mg Capsule PO 15 mg BEDTIME PRN Administration Insomnia Labs CBC & Chem 7: 05/24/20 06:05 05/23/20 10:04 Labs: Laboratory Results - last 24 hr 05/23/20 05/23/20 05/23/20 15:24 16:36 21:02 MCV MCH MCHC RDW Plt Count MPV Immature Gran % (Auto) Neut % (Auto) Lymph % (Auto) [place] % (Auto) Eos % (Auto) Baso % (Auto) Neut # (Auto) Lymph # (Auto) [place] # (Auto) Eos # (Auto) Baso # (Auto) Abs Immat Gran (auto) Absolute Nucleated RBC Nucleated RBC % (auto) POC Glucose 238 H 412 H* Lactic Acid Fup @ 2Hr 1.8 05/24/20 05/24/20 05/24/20 06:05 07:27 11:10 MCV 79.5 L MCH 23.2 L MCHC 29.2 L RDW 20.9 H Plt Count 278 MPV 10.2 Immature Gran % (Auto) 0.7 H Neut % (Auto) 68.8 Lymph % (Auto) 20.6 [place] % (Auto) 6.7 Eos % (Auto) 2.9 Baso % (Auto) 0.3 Neut # (Auto) 7.3 Lymph # (Auto) 2.2 [place] # (Auto) 0.7 Eos # (Auto) 0.3 Baso # (Auto) 0.0 Abs Immat Gran (auto) 0.07 H Absolute Nucleated RBC 0.000 Nucleated RBC % (auto) 0.0 POC Glucose 169 H 216 H Lactic Acid Fup @ 2Hr Microbiology Microbiology Results: Microbiology 05/23/20 10:21 Blood - Venous Blood Culture - Preliminary No growth after 24 hours. 05/23/20 10:04 Blood - Venous Blood Culture - Preliminary No growth after 24 hours. Quality VTE Deep Vein Thrombosis/Pulmonary Embolism Present on Admission: No Assessment and Plan (1) Unwitnessed fall: Status: Acute Assessment and Plan: unclear if this represents syncope or possible seizure orthostatic blood pressures no arrhythmia on telemetry neurology evaluation pending continueseizure precautions (2) Acidosis, lactic: Status: Acute Assessment and Plan: resolved possibly related to metformin hold metformin (3) Diabetes: Status: Inactive Assessment and Plan: hold metformin glipizide was discontinued on last admission will cover with sliding scale, POCs ADA diet (4) Hyperlipemia: Status: Inactive Assessment and Plan: continue statin (5) CVA (cerebral vascular accident): Problem details: chronic L sided weakness and mild facial droop Status: Inactive Assessment and Plan: continue aspirin, Plavix, statin (6) Diastolic CHF: Status: Inactive Assessment and Plan: euvolemic continue home dose of Lasix monitor fluid status (7) Chronic respiratory failure with hypoxia, on home O2 therapy: Status: Inactive Assessment and Plan: continue supplemental oxygen (8) HTN (hypertension): Status: Acute Assessment and Plan: BP controlled Continue Norvasc recurrent fall weakness PT evaluation pending , family wants patient to be placed in rehab DVT prophylax Lovenox
[2020-05-24] MEDS: Enoxaparin Sodium 40 MG/0.4 ML SYRINGE SUBCUT (15:53)
[2020-05-24 16:43] LABS: Glucose, Whole Blood 372 mg/dL (60-115)
--- NOTE | 2020-05-24 17:01 | PC.NURSE ---
Patient's blood sugar was 372 @ 16:38 MD notifed.
[2020-05-24] MEDS: Acetaminophen 325 MG TABLET 650 MG PO (19:23)
[2020-05-24 21:19] LABS: Glucose, Whole Blood 292 mg/dL (60-115)
[2020-05-25] VITALS (14 sets, daily range): BP systolic 134–162; BP diastolic 50–78; PULSE 68–85; RESP 18–20; TEMP 36.4–37.1; O2SAT 4–98; BMI 31.0
[2020-05-25] MEDS: Acetaminophen 325 MG TABLET 650 MG PO (04:06)
[2020-05-25 07:59] LABS: Glucose, Whole Blood 308 mg/dL (60-115)
[2020-05-25] MEDS: rOPINIRole HCL 1 MG TABLET 3 MG PO (08:10)
[2020-05-25] MEDS: Furosemide 40 MG TABLET PO (08:10)
[2020-05-25] MEDS: amLODIPine Besylate 5 MG TABLET PO (08:11)
[2020-05-25] MEDS: Famotidine 20 MG TABLET PO (08:11)
[2020-05-25] MEDS: Gabapentin 100 MG CAPSULE PO ×2 (08:11→15:30)
[2020-05-25] MEDS: Atorvastatin Calcium 20 MG TABLET PO (08:11)
[2020-05-25] MEDS: Sertraline HCL 50 MG TABLET PO (08:12)
[2020-05-25] MEDS: Clopidogrel Bisulfate 75 MG TABLET PO (08:12)
[2020-05-25] MEDS: Insulin Lispro 100 UNIT/ML 3 ML VIAL SUBCUT ×3 (08:12→17:19)
[2020-05-25] MEDS: 0.9 % Sodium Chloride Flush 3 ML SYRINGE 2 ML IVFLUSH ×2 (08:13→15:30)
[2020-05-25 11:44] LABS: Glucose, Whole Blood 258 mg/dL (60-115)
--- NOTE | 2020-05-25 12:39 | MHC.CM.PN ---
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
--- NOTE | 2020-05-25 12:44 | MHC.CM.PN ---
per multidis rounds pt has been accepted at [facility] to which son is agreea ble await dc from
--- NOTE | 2020-05-25 13:42 | PM.NEUROCN ---
History of Present Illness Data of Consult Primary Care Provider: Robert Breen MD [facility] Reason for consult: ?seizure disorder 84 y/o woman with possible seizure d/o. She did not know why she was here. Apparently she c/o left sided weakness on admisstion. It was not clear if she had passed out or not. There is no h/o seizure disorder. There is no h/o recent trauma or change in meds. Review of Systems Review of Systems: General: no loss of weight, or fever Neuro: no active issue reported Psych: no active issues reported Heart: no SOB or chest pain Lungs: no cough or SOB Extremiteis: no edema Musculoskeletal: no joint pains Sleep: no sleep issues reported skin: no rashes ENT: no URI symptoms Neck: no neck pain PMFSH Past Medical History Medical History (Updated 05/23/20 @ 14:14 by SHYLA Melgoza) Anxiety CAD (coronary artery disease) Carpal tunnel syndrome Chronic back pain Chronic respiratory failure with hypoxia, on home O2 therapy COPD (chronic obstructive pulmonary disease) CVA (cerebral vascular accident) Diabetes Diastolic CHF HTN (hypertension) Hyperlipemia Interstitial lung disease Nonepileptic episode Restless leg Functional capacity: uses cane/walker Surgical History Surgical History (Updated 05/23/20 @ 13:26 by SHYLA Melgoza) H/O carotid endarterectomy History of total left hip arthroplasty S/P cholecystectomy Social History Social History (Updated 05/23/20 @ 13:26 by SHYLA Melgoza) Household Members: Family Household Members Other:: son Housing: House Do you presently have visiting nurse or other home services: Yes (Magda [facility]ORSE) Alcohol intake: unknown Smoking Status: Former smoker Smoked in Last 30 Days: No Patient Interested in Nicotine Replacement: No Patient Given Instructions on How to Stop Smoking: No Second Hand Smoke Exposure: No Use of substances other than those prescribed or required for medical reasons: No Currently Displaying Signs/Symptoms of Drug Intoxication Withdrawal: No Any prior treatment program specific to substance use: No Have you been hit, kicked, punched, or otherwise hurt by someone within the past year? If so, by whom?: No Do you feel safe in your current relationship?: No Is there a partner from a previous relationship who is making you feel unsafe now?: No Are you made to feel afraid or neglected: No Advance Directives: No Advance Directives Information Provided: No Do you have thoughts of harming others: None Do you have a plan to hurt others: No Plan Recently lost weight without trying: No service: No Current occupational status: retired [employer] Allergies Allergy/AdvReac Type Severity Reaction Status Date / Time codeine [Codeine] Allergy Mild HEADACHE, Verified 05/23/20 17:00 RASH, NAUSEA baclofen Allergy Unknown tremors Verified 04/01/20 00:00 Home Medications Medication Instructions Recorded Confirmed Type amlodipine 5 mg PO DAILY 05/23/20 05/23/20 History aspirin 81 mg PO DAILY 05/23/20 05/23/20 History clopidogrel 75 mg PO DAILY 05/23/20 05/23/20 History furosemide [Lasix] 40 mg PO DAILY 05/23/20 05/23/20 History gabapentin 100 mg PO TID 05/23/20 05/23/20 History glipizide 5 mg PO BID 05/23/20 05/23/20 History lorazepam 1 mg PO TID PRN 05/23/20 05/23/20 History metformin 500 mg PO BID 05/23/20 05/23/20 History oxycodone 10 mg PO Q6H PRN 05/23/20 05/23/20 History ranitidine HCl 150 mg BID 05/23/20 05/23/20 History ropinirole 3 mg PO DAILY 05/23/20 05/23/20 History sertraline 50 mg PO DAILY 05/23/20 05/23/20 History simvastatin 40 mg PO DAILY 05/23/20 05/23/20 History temazepam 15 mg PO BEDTIME PRN 05/23/20 05/23/20 History Physical Exam Vital Signs and I&O and Narrative: Vital Signs and I&O: Vital Signs Temp 98.1 F 05/25/20 10:00 Pulse 82 05/25/20 10:00 Resp 20 05/25/20 10:00 BP 162/50 H 05/25/20 10:00 Pulse Ox 97 05/25/20 10:00 Intake & Output 05/24/20 05/25/20 05/25/20 18:59 06:59 18:59 Intake Total 360 / 780 420 / 780 Output Total 800 / 1550 750 / 1550 300 / 300 Balance -440 / -770 -330 / -770 -300 / -300 Urine Output (Aver age ml/kg/hr) 0.87 0.81 0.32 Weight 77 kg Intake: Intake, Oral Rod unt 180 / 600 420 / 600 Intake, Intraper itoneal Amount 180 / 180 Output: Output, Urine Am ount 800 / 1550 750 / 1550 300 / 300 Other: Meal Refused No Breakfast % Eate n 50% Lunch % Eaten 50% Number of Unmeas ured Voids 1 Urine Bedside Commode Bedside Commode Urine Color Yellow Body Mass Index 31.0 Mental Status: Normal attention, orientation, and affect. Cranial Nerves: Pupils are equal, round and reactive to light. External occular muscles are intact. Visual clemente are full. Face is symmetrical. Facial sensations are normal. Tongue is midline. Palate elevates symmetrically. Shoulder shrugging is normal. Hearing to bedside conversation is normal. Motor Examination: DTRs are absent, plantars are equivocal Sensory Exam: .. Cerebellar Signs: [id number] is ok Extrapyramidal System: No tremor, rigidity with normal facial expressions. Pronator Drift: not present . Involuntary Movements: No tremors seen . Results Labs CBC & Chem 7: 05/24/20 06:05 05/23/20 10:04 Microbiology Microbiology Results: Microbiology 05/23/20 10:04 Blood - Venous Blood Culture - Preliminary No growth after 48 hours. 05/23/20 10:21 Blood - Venous Blood Culture - Preliminary No growth after 48 hours. Assessment and Plan (1) Syncope: Qualifiers: Syncope type: unspecified Qualified Code(s): R55 - Syncope and collapse Status: Acute Impression: 1. unclear details, possible syncope 2. significant cerebral atrophy 3. significant chronic ischemic disase of brain, which is a risk factor for seizure d/o 4. multifactorial dementia rec: out pt EEG, antiplatelet agent, sugar control, BP control, statin
[2020-05-25] MEDS: Enoxaparin Sodium 40 MG/0.4 ML SYRINGE SUBCUT (15:29)
--- NOTE | 2020-05-25 15:54 | MHC.CM.PN ---
dc set for 6:00 to [facility] marilyn dean pts rn will fax results to [facility] son notified of dc
--- NOTE | 2020-05-25 16:11 | PM.DS ---
DS: Providers Provider Date of admission: 05/23/20 12:49 Primary care physician: Robert Breen MD Consults: 05/23/20 15:36 Consult to Physician Routine Consulting Provider: Karol Hopson Reason for consultation: ?SEIZURE DS: Diagnosis Discharge Diagnosis (1) Syncope: Status: Acute (2) Lactic acidosis: Status: Acute DS: Summary Hospital Course Hospital Course: HPI from the admission H&P: This is a 84-year-old female who was brought to the emergency department initially as a stroke alert due to left-sided weakness noted by EMS. However this is noted to be chronic. patient is a poor historian and was difficult to obtain accurate history. She states she woke up this morning and got out of bed and then woke up on the floor. Luckily she had her cell phone with her and was able to call her son. Her son must have called 911 and she was brought to the emergency department for evaluation. She complains of back pain which is chronic. She denies any other specific complaints. Her workup was significant for an elevated lactic acid of 3.9. For this reason there was concern that she may have had a seizure. The decision was made to admit her overnight for observation. Hospital Course patient was observed on telemetry for nearly 48 hours in the hospital. She had no arrhythmias noted on the tele monitor. She was evaluated by Neurology as there was the possibility of a seizure versus pseudo-seizure. Neurology did not recommend starting any anti epileptics in the hospital but did recommended outpatient EEG. For her generalized weakness and fall, she was evaluated by Physical therapy who recommended short-term rehab. She will be discharged to [facility]. Time Spent with Patient Time attestation: Total time spent providing and/or coordinating discharge services: Quality: VTE Deep Vein Thrombosis/Pulmonary Embolism Present on Admission: No Physical Exam Vital Signs and I&O and Narrative: Vital Signs and I&O: Vital Signs Temp 97.6 F 05/25/20 16:00 Pulse 81 05/25/20 16:00 Resp 18 05/25/20 16:00 BP 145/71 H 05/25/20 16:00 Pulse Ox 95 05/25/20 16:00 Intake & Output 05/24/20 05/25/20 05/25/20 18:59 06:59 18:59 Intake Total 360 / 780 420 / 780 280 / 280 Output Total 800 / 1550 750 / 1550 1000 / 1000 Balance -440 / -770 -330 / -770 -720 / -720 Urine Output (Aver age ml/kg/hr) 0.87 0.81 1.08 Weight 77 kg Intake: Intake, Oral [place] unt 180 / 600 420 / 600 280 / 280 Intake, Intraper itoneal Amount 180 / 180 Output: Output, Urine Am ount 800 / 1550 750 / 1550 1000 / 1000 Other: Meal Refused No No NPO Yes Breakfast % Eate n 50% 100% Lunch % Eaten 50% 100% Number of Unmeas ured Voids 1 Urine Bedside Commode Bedside Commode Urine Color Yellow Body Mass Index 31.0 DS: Data Data Completed and Pending Labs on day of discharge: Labs from last 24 hours 05/25/20 05/25/20 05/24/20 11:01 07:19 21:07 POC Glucose 258 H 308 H 292 H 05/24/20 16:28 POC Glucose 372 H* Preliminary micro results at discharge 05/23/20 10:04 Blood Culture - Preliminary Blood - Venous No growth after 48 hours. 05/23/20 10:21 Blood Culture - Preliminary Blood - Venous No growth after 48 hours. Discharge Plan Discharge Anticipated Discharge Date/Time: 05/25/20 16:01 Patient Disposition: er SNF Referrals: Alexkervin nuñez [place] [Outside] Robert Breen MD [Primary Care Provider] - Discharge Medications: Continued metformin 500 mg Tablet 500 mg PO BID RF: 0 ranitidine HCl 150 mg Tablet 150 mg BID RF: 0 aspirin 81 mg Tablet 81 mg PO DAILY RF: 0 gabapentin 100 mg Capsule 100 mg PO TID RF: 0 glipizide 5 mg Tablet 5 mg PO BID RF: 0 furosemide [Lasix] 40 mg Tablet 40 mg PO DAILY RF: 0 ropinirole 3 mg Tablet 3 mg PO DAILY RF: 0 clopidogrel 75 mg Tablet 75 mg PO DAILY RF: 0 amlodipine 5 mg Tablet 5 mg PO DAILY RF: 0 simvastatin 40 mg Tablet 40 mg PO DAILY RF: 0 temazepam 15 mg Capsule 15 mg PO BEDTIME PRN (Reason: Insomnia) RF: 0 sertraline 50 mg Tablet 50 mg PO DAILY RF: 0 oxycodone 10 mg Tablet 10 mg PO Q6H PRN (Reason: Pain) RF: 0 lorazepam 1 mg Tablet 1 mg PO TID PRN (Reason: Anxiety) Qty: 10 RF: 0 Discharge Orders: Discharge Order (Routine); Ordered 05/25/20 Ordered By: Papito [place] Diet: advance to your usual diet Activity on Discharge: As tolerated Visit Report Forms: Patient Portal Discharge page Care Plan Goals: HAVE AN EEG COMPLETED AN OUTPATIENT Health Concerns: ABOVE Plan of Treatment: SHORT-TERM REHAB
[2020-05-25 16:42] LABS: SARS COV2 PCR INHOUSE NEGATIVE (Negative)
[2020-05-25 16:51] LABS: Glucose, Whole Blood 288 mg/dL (60-115)
== END 2020-05-25 18:05 | disposition skilled nursing facility (03) | DRG 312 ==
LOC: HO.ED 11:45 → HO.IMC 13:20
PROVIDERS: Physician Assistant Medical; Admitting Provider Internal Medicine; Emergency Provider Emergency Medicine; PCP Internal Medicine; Visit Provider Family Medicine
DX: R55 Syncope and collapse (principal); I50.32 Chronic diastolic (congestive) heart failure; I69.954 Hemiplegia and hemiparesis following unspecified cerebrovascular disease affecting left non-dominant side; I25.10 Atherosclerotic heart disease of native coronary artery without angina pectoris; G89.29 Other chronic pain; E78.5 Hyperlipidemia, unspecified; G25.81 Restless legs syndrome; Z20.828 Contact with and (suspected) exposure to other viral communicable diseases; F41.9 Anxiety disorder, unspecified; I11.0 Hypertensive heart disease with heart failure; Z99.81 Dependence on supplemental oxygen; R53.1 Weakness; Z87.891 Personal history of nicotine dependence; Z91.81 History of falling; Z79.02 Long term (current) use of antithrombotics/antiplatelets; Z79.82 Long term (current) use of aspirin; Z79.84 Long term (current) use of oral hypoglycemic drugs; Z79.891 Long term (current) use of opiate analgesic; Z79.899 Other long term (current) drug therapy
CPT/HCPCS: 36415; 70450; 71250; 72125; 80048; 80076; 81001; 81003; 82140; 82550; 82803; 82947; 83605; 83690; 83735; 83880; 84484; 85025; 85610; 85730; 87040; 87635; 93005; 93010; 97162; 99285; J0696; J1650; J3475

== ENCOUNTER 2020-06-19 20:53 | Inpatient (IN) | payer MEDICARE, SELFPAY ==
[2020-06-19 21:14] VITALS: BP 123/74; BP 92/37; PULSE 69; PULSE 70; RESP 21; TEMP 36.4; O2SAT 92; O2SAT 93; BMI 17.7
--- NOTE | 2020-06-19 21:19 | ECG_ITS ---
Test Reason : SYNCOPEE Blood Pressure : / mmHG Vent. Rate : 068 BPM Atrial Rate : 068 BPM P-R Int : 192 ms QRS Dur : 078 ms QT Int : 446 ms P-R-T Axes : 043 -19 021 degrees QTc Int : 474 ms Normal sinus rhythm Normal ECG When compared with ECG of 23-MAY-2020 09:46, No significant change was found Referred By: Shawn Serna Electronically Signed By:ESTHER LARIOS MD
--- NOTE | 2020-06-19 21:31 | ED_ITS ---
HPI - Syncope General Chief Complaint: Syncope Stated Complaint: altered mental/syncope Time Seen by Provider: 06/19/20 21:21 Source: patient and family Mode of arrival: EMS Limitations: no limitations History of Present Illness HPI narrative: patient with multiple medical issues on oxycodone, gabapentin and temazepam just released from rehab 3 days ago for feeling weak since discharge today while coming back from the bathroom he was feeling very weak unable to ambulate son help her out and then she passed which lasted for about 2 minutes after that she was very angry and upset with the family. No seizure a ctivities son checked the blood sugar was 217 oxygen was 91% and pulse rate was in 70s patient received her medication around 20:00 at this time patient denying any complaints MD complaint: loss of consciousness Duration of episode: 3 -: minutes(s) Related Data Home Medications Medication Instructions Recorded Confirmed amlodipine 5 mg PO DAILY 05/23/20 06/20/20 aspirin 81 mg PO DAILY 05/23/20 06/20/20 clopidogrel 75 mg PO DAILY 05/23/20 06/20/20 furosemide [Lasix] 40 mg PO DAILY 05/23/20 06/20/20 gabapentin 100 mg PO TID 05/23/20 06/20/20 glipizide 5 mg PO BID 05/23/20 06/20/20 ropinirole 3 mg PO DAILY 05/23/20 06/20/20 sertraline 50 mg PO DAILY 05/23/20 06/20/20 simvastatin 40 mg PO DAILY 05/23/20 06/20/20 temazepam 15 mg PO BEDTIME PRN 05/23/20 06/20/20 famotidine 20 mg PO DAILY 06/20/20 06/20/20 ferrous sulfate 324 mg PO DAILY 06/20/20 06/20/20 potassium chloride 20 meq PO DAILY 06/20/20 06/20/20 Previous Rx's Medication Instructions Recorded lorazepam 1 mg PO TID PRN #10 tab 05/25/20 Allergies Allergy/AdvReac Type Severity Reaction Status Date / Time codeine [Codeine] Allergy Mild HEADACHE, Verified 05/23/20 17:00 RASH, NAUSEA baclofen Allergy Unknown tremors Verified 04/01/20 00:00 Review of Systems Review of Systems: REVIEW OF SYSTEMS: Pertinent positives and negatives are stated above in the history. GEN: no fevers, chills, HEENT: no nasal congestion, sore throat, ear pain NEURO: no headache, dizziness, focal weakness PULM: no cough, shortness of breath CV: no chest pain, palpitations, LE edema ABD: no abdominal pain, nausea, vomiting, diarrhea : no dysuria, urgency, frequency SKIN: no rash ROS otherwise negative x 10 PMFSH Past Medical History Medical History Anxiety CAD (coronary artery disease) Carpal tunnel syndrome Chronic back pain Chronic respiratory failure with hypoxia, on home O2 therapy COPD (chronic obstructive pulmonary disease) CVA (cerebral vascular accident) Diabetes Diastolic CHF HTN (hypertension) Hyperlipemia Interstitial lung disease Lactic acidosis Nonepileptic episode Restless leg Unwitnessed fall Surgical History H/O carotid endarterectomy History of total left hip arthroplasty S/P cholecystectomy Social History Social History Household Members: Family Housing: House Alcohol intake: unknown Smoking Status: Former smoker Second Hand Smoke Exposure: No Advance Directives: No service: No Current occupational status: retired Physical Exam Vital Signs: Vital Signs: Vital Signs Temp Pulse Resp BP Pulse Ox 06/19/20 22:53 92 06/19/20 22:39 16 113/43 L 91 L 06/19/20 21:59 64 12 115/49 L 95 06/19/20 21:14 97.5 F 69 21 H 92/37 L 92 Body Mass Index 17.7 VITAL SIGNS: Reviewed. GENERAL: Well developed, well nourished, lethargic and sleepy. HEAD: Normocephalic/atraumatic, EYES: PERRLA No pallor/icterus noted EARS: Ext canals without abnormality NOSE: Nares patent bilateral OROPHARYNX: Oral mucosa moist no oral lesions NECK: Supple, no adenopathy LUNGS: Normal breath sounds. No adventitious sounds or accessory muscle use CARDIOVASCULAR: Regular rate and rhythm without noted murmurs, no JVD or lower extremity edema. ABDOMEN: Soft, non-tender, non-distended with bowel sounds. No rigidity. No guarding. No palpable masses or hernias noted MUSCULOSKELETAL: No tenderness, deformities, EXTREMITIES: No cyanosis or edema. SKIN: no rashes, ulcerations, jaundice, pallor, or petechiae NEUROLOGIC: Alert and oriented x 3. Strength and sensation to light touch were grossly intact Course Course Course Narrative: patient's symptoms seems like for metabolic encephalopathy likely from multi medications which has happened in the past will check basic la bs and urine and follow Reevaluation(s) Reevaluation #1: patient relaxed and sleeping at this time, stable labs urine is pending. Case discussed with patient's son was very uncomfortable taking the patient home not sure why patient passed out likely polypharmacy similar to that in the past will admit patient for observation Time: 00:08 Reevaluation #2: patient UA showed elevated WBC count suggestive of UTI will do the blood culture and lactic acid and in the past she had Klebsiella pneumonia sensitive to Rocephin will give IV Rocephin and admit Time: 01:13 MDM - Syncope Lab Data Result diagrams: 06/19/20 21:30 06/19/20 21:30 Labs: Lab Results 06/19/20 06/19/20 06/19/20 Range/Units 21:30 21:30 21:30 WBC 10.3 (4.8-10.8) X10*3/uL RBC 3.92 L (4.20-5.50) X10*6/uL Hgb 9.4 L (12.0-16.0) g/dl Hct 31.4 L (37-47) % MCV 80.1 (80-98) fL MCH 24.0 L (27.0-33.0) pg MCHC 29.9 L (31.0-35.0) g/dl RDW 21.0 H (11.0-16.0) % Plt Count 298 (160-400) X10*3/uL MPV 9.6 (9.4-12.3) fL Immature Gran % (Auto) 0.5 H (0.0-0.4) % Neut % (Auto) 58.1 (45-73) % Lymph % (Auto) 29.1 (20-40) % [place] % (Auto) 8.2 (2-11) % Eos % (Auto) 3.5 (0-4) % Baso % (Auto) 0.6 (0-2) % Lymph # (Auto) 3.0 (1.2-4.9) X10*3/uL [place] # (Auto) 0.8 (0.1-1.2) X10*3/uL Eos # (Auto) 0.4 (0.0-0.4) X10*3/uL Baso # (Auto) 0.1 (0.0-0.2) X10*3/uL Abs Immat Gran (auto) 0.05 H (0.00-0.03) X10*3/uL Absolute Neuts (auto) 6.0 (2.0-8.3) X10*3/uL Absolute Nucleated RBC 0.000 (0.0-0.012) X10*3/uL Nucleated RBC % (auto) 0.0 (0.0-0.2) /100WBC Hold Blue Top SEE NOTE Sodium 139 (135-145) mmol/L Potassium 4.4 D (3.3-5.1) mmol/l Chloride 101 (96-108) mmol/L Carbon Dioxide 26 (22-29) mmol/L Anion Gap 16 (12-20) BUN 20 H D (9-16) mg/dL Creatinine 1.12 (0.5-1.4) mg/dL Estim Creat Clear Calc 32.4 Estimated GFR 47 Random Glucose 105 D (60-115) mg/dL Calcium 8.0 L (8.4-10.2) mg/dL Total Bilirubin (0.0-1.0) mg/dL Direct Bilirubin (0.0-0.5) mg/dL AST (5-31) U/L ALT (0-31) U/L Alkaline Phosphatase (39-117) U/L Troponin I High Sens (<3.5-17.0) ng/L Total Protein (6.5-8.0) g/dL Albumin (3.5-5.0) g/dL 06/19/20 06/19/20 Range/Units 21:30 21:30 WBC (4.8-10.8) X10*3/uL RBC (4.20-5.50) X10*6/uL Hgb (12.0-16.0) g/dl Hct (37-47) % MCV (80-98) fL MCH (27.0-33.0) pg MCHC (31.0-35.0) g/dl RDW (11.0-16.0) % Plt Count (160-400) X10*3/uL MPV (9.4-12.3) fL Immature Gran % (Auto) (0.0-0.4) % Neut % (Auto) (45-73) % Lymph % (Auto) (20-40) % [place] % (Auto) (2-11) % Eos % (Auto) (0-4) % Baso % (Auto) (0-2) % Lymph # (Auto) (1.2-4.9) X10*3/uL [place] # (Auto) (0.1-1.2) X10*3/uL Eos # (Auto) (0.0-0.4) X10*3/uL Baso # (Auto) (0.0-0.2) X10*3/uL Abs Immat Gran (auto) (0.00-0.03) X10*3/uL Absolute Neuts (auto) (2.0-8.3) X10*3/uL Absolute Nucleated RBC (0.0-0.012) X10*3/uL Nucleated RBC % (auto) (0.0-0.2) /100WBC Hold Blue Top Sodium (135-145) mmol/L Potassium (3.3-5.1) mmol/l Chloride (96-108) mmol/L Carbon Dioxide (22-29) mmol/L Anion Gap (12-20) BUN (9-16) mg/dL Creatinine (0.5-1.4) mg/dL Estim Creat Clear Calc Estimated GFR Random Glucose (60-115) mg/dL Calcium (8.4-10.2) mg/dL Total Bilirubin 0.4 (0.0-1.0) mg/dL Direct Bilirubin 0.2 (0.0-0.5) mg/dL AST 34 H D (5-31) U/L ALT 13 (0-31) U/L Alkaline Phosphatase 130 H (39-117) U/L Troponin I High Sens 4.3 (<3.5-17.0) ng/L Total Protein 6.3 L (6.5-8.0) g/dL Albumin 3.3 L (3.5-5.0) g/dL Discharge Plan Discharge Clinical Impression: Syncope and collapse, Acute UTI, Acute metabolic encephalopathy Patient Disposition: Admitted As Inpatient
--- NOTE | 2020-06-19 21:32 | XR_ITS ---
EXAMINATION: XR CHEST CLINICAL INFORMATION: Syncope COMPARISON: Chest CT 05/23/2020 TECHNIQUE: Frontal view of the chest was obtained. FINDINGS: Heart size is normal and there is no evidence of CHF. Changes of COPD are much better seen on the recent chest CT. Reticulonodular changes are present consistent with the interstitial lung disease that was seen on CT as well. No focal consolidation. No pleural effusions. There is been prior rotator cuff surgery on the right XR/XR chest 1V IMPRESSION: No acute intrathoracic disease.
--- NOTE | 2020-06-19 21:32 | ECG_ITS ---
Test Reason : CHEST PAIN Blood Pressure : / mmHG Vent. Rate : 081 BPM Atrial Rate : 081 BPM P-R Int : 160 ms QRS Dur : 084 ms QT Int : 414 ms P-R-T Axes : 037 -19 035 degrees QTc Int : 480 ms Sinus rhythm with frequent Premature ventricular complexes Left axis deviation Abnormal ECG When compared with ECG of 20-JUN-2020 15:42, AK interval has decreased Referred By: Octavio Gr Electronically Signed By:ESTHER LARIOS MD
[2020-06-19 21:38] LABS: MANUAL DIFF FLAG NO
[2020-06-19 21:40] LABS: Basophils Absolute Auto 0.1 X10*3/uL (0.0-0.2); Basophils Percent Auto 0.6 % (0-2); Eosinophils Absolute Auto 0.4 X10*3/uL (0.0-0.4); Eosinophils Percent Auto 3.5 % (0-4); Hematocrit 31.4 % (37-47); Hemoglobin 9.4 g/dl (12.0-16.0); Imm Gran Abs Auto 0.05 X10*3/uL (0.00-0.03); Imm Gran Pct Auto 0.5 % (0.0-0.4); Lymphocytes Percent Auto 29.1 % (20-40); Mean Corpuscular HGB Conc 29.9 g/dl (31.0-35.0); Mean Corpuscular Volume 80.1 fL (80-98); Mean Platelet Volume 9.6 fL (9.4-12.3); Monocytes Absolute Auto 0.8 X10*3/uL (0.1-1.2); Monocytes Percent Auto 8.2 % (2-11); Neutrophils Percent Auto 58.1 % (45-73); Platelet Count 298 X10*3/uL (160-400); Red Blood Count 3.92 X10*6/uL (4.20-5.50); White Blood Count 10.3 X10*3/uL (4.8-10.8)
[2020-06-19 21:59] VITALS: BP 115/49; PULSE 64; RESP 12; O2SAT 95
[2020-06-19 22:06] LABS: Anion Gap 16 (12-20); Blood Urea Nitrogen 20 mg/dL (9-16); Carbon Dioxide 26 mmol/L (22-29); Chloride 101 mmol/L (96-108); Creatinine Clr Calc Pharmacy 32.4; Estimated Glomerular Filt Rate 47; Glucose Random 105 mg/dL (60-115); Potassium 4.4 mmol/l (3.3-5.1); Sodium 139 mmol/L (135-145)
[2020-06-19 22:10] LABS: Troponin-I High Sensitivity 4.3 ng/L (<3.5-17.0)
[2020-06-19 22:16] LABS: Alanine Aminotransferase 13 U/L (0-31); Albumin Level 3.3 g/dL (3.5-5.0); Alkaline Phosphatase 130 U/L (39-117); Aspartate Amino Transferase 34 U/L (5-31); Bilirubin Direct 0.2 mg/dL (0.0-0.5); Bilirubin Total 0.4 mg/dL (0.0-1.0); Total Protein 6.3 g/dL (6.5-8.0)
[2020-06-19 22:39] VITALS: BP 113/43; RESP 16; O2SAT 91
--- NOTE | 2020-06-19 22:40 | PC.NURSE ---
PT STATES SHE CAN NOT LAY ON HER BACK DUE TO SPINE PAIN. PT BP CUFF CHANGED TO HER LEFT ARM. PT IS EASY TO ARROUSE, STATES SHE FEELS COLD, BLANKET GIVEN. PT BP 120/58 . SAT 90-91 ON 3.5L NC.
[2020-06-19 22:53] VITALS: O2SAT 92
--- NOTE | 2020-06-19 23:02 | PC.NURSE ---
PT TRIAGED AFTER SYNCOPAL EPISODE AT HOME WITNESSSED BY SON HE WAS HELPING HER AMBULATE TO BATHROOM. SENT HOMEFROM REHAB 3 WKS AGO, REPORTEDLY WEAK SINCE DEPARTURE FROM THERE. HX DEMENTIA AND COPD. PT AGGRESSIVE WITH EMS. 2L O2 AT HOME, SPO2 88% ON 2L, INCREASED TO 4L. BPS A LITTLE SOFT AT FIRST, TRENDING UPWARDS. 20G IN L UPPER ARM.
[2020-06-19] MEDS: 0.9 % Sodium Chloride 1,000 ML 999 ML IVCONT (23:26)
[2020-06-20] VITALS (9 sets, daily range): BP systolic 105–141; BP diastolic 41–73; PULSE 60–84; RESP 16–22; TEMP 35.9–36.9; O2SAT 90–96
--- NOTE | 2020-06-20 | ECG_ITS ---
Test Reason : CHEST PAIN Blood Pressure : / mmHG Vent. Rate : 083 BPM Atrial Rate : 083 BPM P-R Int : 226 ms QRS Dur : 080 ms QT Int : 410 ms P-R-T Axes : 101 -18 032 degrees QTc Int : 481 ms Sinus rhythm with 1st degree A-V block with occasional Premature ventricular complexes Nonspecific ST abnormality Lateral leads Abnormal ECG When compared with ECG of 19-JUN-2020 21:48, Premature ventricular complexes are now Present PA interval has increased Nonspecific ST abnormality is new Referred By: Octavio Gr Electronically Signed By:ESTHER LARIOS MD
[2020-06-20 00:51] LABS: Glucose Urine UA NEG (NEG); Leukocyte Esterase Urine 1+ (NEG); Nitrite Urine NEG (NEG); PH 5.5 (5.0-8.0); Urine Blood NEG (NEG); Urine Ketones NEG (NEG); Urine Protein NEG (NEG-TRACE)
[2020-06-20 00:52] LABS: Appearance Urine CLEAR; Color Urine YELLOW
[2020-06-20 01:03] LABS: WBC Urine 30-49 /HPF (0-4)
[2020-06-20 01:04] LABS: Bacteria Urine 1+ /LPF; RBC Urine 0-2 /HPF (0); Squamous Epithelial Cell Urine 2+ /LPF
[2020-06-20 01:53] LABS: Lactic Acid 1.1 mmol/L (0.5-2.0)
[2020-06-20 02:55] LABS: SARS COV2 PCR INHOUSE NEGATIVE (Negative)
[2020-06-20] MEDS: Lactated Ringers 1,000 ML 100 ML IVCONT ×2 (04:25→15:24)
[2020-06-20] MEDS: Heparin Sodium,Porcine 5,000 UNIT/ML VIAL 5000 UNIT SUBCUT ×2 (04:25→13:27)
[2020-06-20] MEDS: cefTRIAXone sodium 1 GM in 0.9 % Sodium Chloride 50 ML IV (04:26)
--- NOTE | 2020-06-20 04:43 | P.HPIM_ITS ---
History of Present Illness Date of Service: 06/20/20 Chief Complaint: lethargy this is an 84-year-old woman with an extensive past medical history who presents to the hospital with lethargy. patient is lethargic and history is obtained mostly from EMR and ED physician. Of note patient was recently discharged from the hospital on 05/25 to rehab after being admitted for syncope / epilepsy. At that time patient was noted to have generalized weakness and was sent to rehab. Patient was supposed to follow-up with Neurology outpatient for an EEG. Patient was released from short-term rehab on MondayJune 17, according to her son she was doing well up until about a day ago when she started becoming more lethargic and weak. While coming back from the bathroom today she was feeling very weak and not able to ambulate. Son was able to help her out of the bathroom but she passed of in his arm and that lasted for about 2 minutes. No seizure-like activity was noted, according to the son he checked her blood sugar which was 217 oxygen was 91% with a pulse rate of 70. on arrival to the ED patient with no significant abnormal vitals labs are significant for WBC count of 10.3, hemoglobin of 9.4 which is around her baseline, BUN of 20 with a creatinine of 1.12 UA is positive for leukocyte Estrace and WBC. COVID-19 negative past medical history is obtained from chart as patient is too lethargic to answer questions PAST MEDICAL HISTORY: 1. Pseudoseizure. 2. Severe anxiety. 3. Hypertension. 4. Hyperlipidemia. 5. Diabetes mellitus. 6. Restless leg syndrome. 7. Chronic obstructive pulmonary disease, on 2 L of home oxygen. 8. Coronary artery disease. 9. History of CVA with left upper extremity weakness. 10. Depression. 11. Chronic low back pain. 12. Vertigo. 13. Insomnia. 14. Peripheral neuropathy. 15. Coronary artery disease. 16. Diverticulosis. PAST SURGICAL HISTORY: 1. Bilateral carpal tunnel release. 2. Bilateral rotator cuff repair. 3. Left knee arthroplasty. 4. Left hip arthroplasty. 5. Back surgery with stimulator implantation. 6. Right carotid endarterectomy. 7. Cholecystectomy. SOCIAL HISTORY: Lives with her son. Quit smoking in the . Denies any alcohol or illicit drug use. Uses a walker for ambulation. FAMILY HISTORY: Positive for mother with breast cancer. Father with lung cancer. She had a brother with brain cancer and another brother with lung cancer. [facility] Medical History Anxiety CAD (coronary artery disease) Carpal tunnel syndrome Chronic back pain Chronic respiratory failure with hypoxia, on home O2 therapy COPD (chronic obstructive pulmonary disease) CVA (cerebral vascular accident) Diabetes Diastolic CHF HTN (hypertension) Hyperlipemia Interstitial lung disease Lactic acidosis Nonepileptic episode Restless leg Unwitnessed fall Surgical History H/O carotid endarterectomy History of total left hip arthroplasty S/P cholecystectomy Social History Household Members: Family Housing: House Alcohol intake: unknown Smoking Status: Former smoker Second Hand Smoke Exposure: No Use of substances other than those prescribed or required for medical reasons: No Have you been hit, kicked, punched, or otherwise hurt by someone within the past year? If so, by whom?: No Do you feel safe in your current relationship?: No Is there a partner from a previous relationship who is making you feel unsafe now?: No Advance Directives: No Advance Directives Information Provided: No (declined) Advance Directives on File: No Do you have thoughts of harming others: None Do you have a plan to hurt others: No Plan Recently lost weight without trying: No service: No Current occupational status: retired Meds Allergies Allergy/AdvReac Type Severity Reaction Status Date / Time codeine [Codeine] Allergy Mild HEADACHE, Verified 05/23/20 17:00 RASH, NAUSEA baclofen Allergy Unknown tremors Verified 04/01/20 00:00 Home Medications Medication Instructions Recorded Confirmed Type amlodipine 5 mg PO DAILY 05/23/20 06/20/20 History aspirin 81 mg PO DAILY 05/23/20 06/20/20 History clopidogrel 75 mg PO DAILY 05/23/20 06/20/20 History furosemide [Lasix] 40 mg PO DAILY 05/23/20 06/20/20 History gabapentin 100 mg PO TID 05/23/20 06/20/20 History glipizide 5 mg PO BID 05/23/20 06/20/20 History ropinirole 3 mg PO DAILY 05/23/20 06/20/20 History sertraline 50 mg PO DAILY 05/23/20 06/20/20 History simvastatin 40 mg PO DAILY 05/23/20 06/20/20 History temazepam 15 mg PO BEDTIME PRN 05/23/20 06/20/20 History famotidine 20 mg PO DAILY 06/20/20 06/20/20 History ferrous sulfate 324 mg PO DAILY 06/20/20 06/20/20 History potassium chloride 20 meq PO DAILY 06/20/20 06/20/20 History Physical Exam Vital Signs and Narrative: Vital Signs: Last Vital Signs Temp 96.7 F L 06/20/20 04:17 Pulse 68 06/20/20 04:17 Resp 16 06/20/20 04:17 BP 105/41 L 06/20/20 04:17 Pulse Ox 90 L 06/20/20 04:17 Body Mass Index 17.7 Results Labs Labs: Laboratory Tests 06/19/20 06/19/20 06/19/20 21:30 21:30 21:30 WBC 10.3 RBC 3.92 L Hgb 9.4 L Hct 31.4 L MCV 80.1 MCH 24.0 L MCHC 29.9 L RDW 21.0 H Plt Count 298 MPV 9.6 Immature Gran % (Auto) 0.5 H Neut % (Auto) 58.1 Lymph % (Auto) 29.1 [place] % (Auto) 8.2 Eos % (Auto) 3.5 Baso % (Auto) 0.6 Lymph # (Auto) 3.0 [place] # (Auto) 0.8 Eos # (Auto) 0.4 Baso # (Auto) 0.1 Abs Immat Gran (auto) 0.05 H Absolute Neuts (auto) 6.0 Absolute Nucleated RBC 0.000 Nucleated RBC % (auto) 0.0 Hold Blue Top SEE NOTE Sodium 139 Potassium 4.4 D Chloride 101 Carbon Dioxide 26 Anion Gap 16 BUN 20 H D Creatinine 1.12 Estim Creat Clear Calc 32.4 Estimated GFR 47 Random Glucose 105 D Lactic Acid Calcium 8.0 L Total Bilirubin Direct Bilirubin AST ALT Alkaline Phosphatase Troponin I High Sens Total Protein Albumin Urine Color Urine Appearance Urine pH Ur Specific [place] Urine Protein Urine Glucose (UA) Urine Ketones Urine Blood Urine Nitrite Ur Leukocyte Esterase Urine RBC Urine WBC Ur Squamous Epith Cells Urine Bacteria Urine Yeast Coronavirus (PCR) 06/19/20 06/19/20 06/20/20 21:30 21:30 00:41 WBC RBC Hgb Hct MCV MCH MCHC RDW Plt Count MPV Immature Gran % (Auto) Neut % (Auto) Lymph % (Auto) [place] % (Auto) Eos % (Auto) Baso % (Auto) Lymph # (Auto) [place] # (Auto) Eos # (Auto) Baso # (Auto) Abs Immat Gran (auto) Absolute Neuts (auto) Absolute Nucleated RBC Nucleated RBC % (auto) Hold Blue Top Sodium Potassium Chloride Carbon Dioxide Anion Gap BUN Creatinine Estim Creat Clear Calc Estimated GFR Random Glucose Lactic Acid Calcium Total Bilirubin 0.4 Direct Bilirubin 0.2 AST 34 H D ALT 13 Alkaline Phosphatase 130 H Troponin I High Sens 4.3 Total Protein 6.3 L Albumin 3.3 L Urine Color YELLOW Urine Appearance CLEAR Urine pH 5.5 Ur Specific [place] 1.020 Urine Protein NEG Urine Glucose (UA) NEG Urine Ketones NEG Urine Blood NEG Urine Nitrite NEG Ur Leukocyte Esterase 1+ H Urine RBC 0-2 Urine WBC 30-49 H Ur Squamous Epith Cells 2+ Urine Bacteria 1+ Urine Yeast TRACE Coronavirus (PCR) 06/20/20 06/20/20 01:25 01:34 WBC RBC Hgb Hct MCV MCH MCHC RDW Plt Count MPV Immature Gran % (Auto) Neut % (Auto) Lymph % (Auto) [place] % (Auto) Eos % (Auto) Baso % (Auto) Lymph # (Auto) [place] # (Auto) Eos # (Auto) Baso # (Auto) Abs Immat Gran (auto) Absolute Neuts (auto) Absolute Nucleated RBC Nucleated RBC % (auto) Hold Blue Top Sodium Potassium Chloride Carbon Dioxide Anion Gap BUN Creatinine Estim Creat Clear Calc Estimated GFR Random Glucose Lactic Acid 1.1 Calcium Total Bilirubin Direct Bilirubin AST ALT Alkaline Phosphatase Troponin I High Sens Total Protein Albumin Urine Color Urine Appearance Urine pH Ur Specific [place] Urine Protein Urine Glucose (UA) Urine Ketones Urine Blood Urine Nitrite Ur Leukocyte Esterase Urine RBC Urine WBC Ur Squamous Epith Cells Urine Bacteria Urine Yeast Coronavirus (PCR) NEGATIVE ECG Interpretation: Normal sinus rhythm Normal ECG When compared with ECG of 23-MAY-2020 09:46, No significant change was found Imaging Chest x-ray: Radiologist's impression: IMPRESSION: No acute intrathoracic disease. Assessment and Plan (1) Syncope and collapse: Status: Acute (2) Acute UTI: Status: Acute (3) Acute metabolic encephalopathy: Status: Acute (4) HTN (hypertension): Status: Acute (5) Diabetes: Status: Acute 84-year-old female with past medical history as above who presents to the hospital with syncopal episode as well as increased lethargy and encephalopathy. # Metabolic encephalopathy - most likely secondary to acute UTI - UA is positive for leukocyte Estrace and WBC, patient otherwise hemodynamically stable - no electrolyte abnormality Plan: - Will treat UTI with antibiotics - follow urine and blood cultures - monitor mental status - IV fluids # acute UTI - no sepsis, afebrile, no leukocytosis - UA positive for leukocyte Estrace as well as WBC Plan: - ceftriaxone 1 mg Q 24 hours - urine culture and blood cultures ordered by ED will follow results # hypertension - continue amlodipine # diabetes mellitus - low-dose sliding scale insulin - diabetic diet - hold glipizide and metformin # history of CVA - continue aspirin, Plavix and statin DVT prophylaxis: Heparin subcu
[2020-06-20 07:46] LABS: Glucose, Whole Blood 63 mg/dL (60-115)
[2020-06-20 08:46] LABS: Glucose, Whole Blood 96 mg/dL (60-115)
[2020-06-20] MEDS: Acetaminophen 325 MG TABLET 650 MG PO ×2 (09:35→21:58)
[2020-06-20] MEDS: Aspirin 81 MG TAB.CHEW PO (09:35)
[2020-06-20] MEDS: Sertraline HCL 50 MG TABLET PO (09:35)
[2020-06-20] MEDS: Clopidogrel Bisulfate 75 MG TABLET PO (09:35)
[2020-06-20] MEDS: Docusate Sodium 100 MG CAPSULE PO ×2 (09:35→21:49)
[2020-06-20] MEDS: 0.9 % Sodium Chloride Flush 3 ML SYRINGE IVFLUSH (09:37)
[2020-06-20] MEDS: Furosemide 40 MG TABLET PO (09:41)
[2020-06-20] MEDS: amLODIPine Besylate 5 MG TABLET PO (09:42)
--- NOTE | 2020-06-20 09:42 | P.PNIM_ITS ---
Subjective Subjective Date of Service: 06/20/20 Interval History: Seen in f/u for metabolic encephalopathy UTI, seems better today Review of Systems Gen: no fever Resp: cough CV: no chest, no KNUTSON, no leg edema GI: No n/v, no abd pain Neuro:confusion Physical Exam Vital Signs: Vital Signs: Vital Signs Temp Pulse Resp BP Pulse Ox 06/20/20 08:57 69 106/59 L 90 L 06/20/20 08:00 97.7 F 69 20 106/59 L 90 L 06/20/20 04:17 96.7 F L 68 16 105/41 L 90 L 06/20/20 02:27 60 17 96 06/19/20 22:53 92 06/19/20 22:39 16 113/43 L 91 L 06/19/20 21:59 64 12 115/49 L 95 06/19/20 21:14 97.5 F 69 21 H 92/37 L 92 Body Mass Index 17.7 General: AO X 2, no acute distress Resp: CTA bilateral CVS: S1,S2,RRR GI: +BS, NT, no distention Skin: No rash Neuro: motor grossly intact Psych: appropriate affect Objective Data Current Medications Generic Name Dose Route Start Last Admin Trade Name Freq PRN Reason Stop Dose Admin Acetaminophen 650 mg 06/20/20 00:23 Acetaminophen 325 Mg Tablet PO Q6H PRN Pain, Mild (Pain Scale 1-3) Amlodipine Besylate 5 mg 06/20/20 09:00 Amlodipine Besylate 5 Mg Tablet PO DAILY [facility] Protocol Aspirin 81 mg 06/20/20 09:30 Aspirin 81 Mg Tab.Chew PO DAILY [facility] Clopidogrel Bisulfate 75 mg 06/20/20 09:00 Clopidogrel Bisulfate 75 Mg Tablet PO DAILY [facility] Docusate Sodium 100 mg 06/20/20 09:00 Docusate Sodium 100 Mg Capsule PO BID [facility] Furosemide 40 mg 06/20/20 09:00 Furosemide 40 Mg Tablet PO DAILY [facility] Protocol Heparin Sodium (Porcine) 5,000 unit 06/20/20 01:00 06/20/20 04:25 Heparin Sodium,Porcine 5,000 Unit/Ml Vial SUBCUT 5,000 unit Q12H [facility] Administration Lactated Ringer's 1,000 mls @ 100 mls/hr 06/20/20 00:30 06/20/20 04:25 Lr IVCONT 100 mls/hr .Q10H NAGI Administration Ceftriaxone Sodium 1 gm/ 50 mls @ 100 mls/hr 06/21/20 06:00 Sodium Chloride IV Q24H [facility] Insulin Human Lispro 0 unit 06/20/20 07:30 Insulin Lispro 100 Unit/Ml 3 Ml Vial SUBCUT QIDACHS [facility] Protocol Ondansetron HCl 4 mg 06/20/20 00:23 Ondansetron Hcl 4 Mg/2 Ml Vial IVPUSH Q8H PRN Nausea and Vomiting Sertraline HCl 50 mg 06/20/20 09:00 Sertraline Hcl 50 Mg Tablet PO DAILY [facility] Sodium Chloride 3 ml 06/20/20 08:00 0.9 % Sodium Chloride Flush 3 Ml Syringe IVFLUSH QSHIFT [facility]AGI Temazepam 15 mg 06/20/20 00:45 Temazepam 15 Mg Capsule PO BEDTIME PRN Insomnia Labs CBC & Chem 7: 06/19/20 21:30 06/19/20 21:30 Assessment and Plan (1) Syncope and collapse: Status: Acute (2) Acute UTI: Status: Acute (3) Acute metabolic encephalopathy: Status: Acute (4) HTN (hypertension): Status: Acute (5) Diabetes: Status: Acute Assessment and Plan: 84-year-old female with past medical history as above who presents to the hospital with syncopal episode as well as increased lethargy and encephalopathy. # Metabolic encephalopathy - most likely secondary to acute UTI - UA is positive for leukocyte Estrace and WBC, patient otherwise hemodynamically stable - no electrolyte abnormality -continue Ceftriaxone # acute UTI--culture pending. Ceftriaxone for 1 more day, then oral Ceftin 250 bid at discharge # hypertension - continue amlodipine # diabetes mellitus - low-dose sliding scale insulin - diabetic diet - hold glipizide and metformin--d/t hypoglycemia this morning. # history of CVA - continue aspirin, Plavix and statin home in 24 to 48 hours
[2020-06-20 11:37] LABS: Glucose, Whole Blood 160 mg/dL (60-115)
--- NOTE | 2020-06-20 12:06 | PC.NURSE ---
Addendum entered by Susi Christina RN 06/20/20 12:07: Error, POC recheck was 96 not 91 Original Note: 0700- Pt POC was [address] Gr made aware. Pt given orange juice. POC rechecked 91. Pt eating breakfast now. Will continue to monitor.
[2020-06-20] MEDS: Insulin Lispro 100 UNIT/ML 3 ML VIAL SUBCUT ×3 (12:34→21:49)
--- NOTE | 2020-06-20 15:07 | MHC.CM.PN ---
PATIENT LIVES WITH HER SON. SHE WAS RECENTLY DC FROM [facility] [address] AFTER ABOUT 3 WEEKS. PRIOR TO THIS, SHE WAS AT [facility] FOR 3 WEEKS IN DECEMBER 2019. SON (IN ROOM) IS CONCERNED THAT HIS MOTHER IS UNSAFE TO BE AT HOME, HE WORKS 12 HOUR SHIFTS. HE IS VISIBLY DISTRAUGHT WHEN TELLING THIS SKEIN WINDER. HE HAS STARTED A [employer] APPLICATION WITH [facility], AND IS EXPECTING A PACKET IN THE MAIL VERY SOON. HE ASKS FOR REFERRAL TO [facility] AND [facility] [place] IN THE EVENT THAT PATIENT IS SKILLABLE AT DISCHARGE. CURRENTLY, [facility] IS IN THE HOME OFFERING RN SKILLS, BUT THE PATIENT CAME HERE THE DAY THE STARTED. REFERRAL PLACED FOR AGENCY TO FOLLOW. SON IS HCP, AND A COPY IS ON FILE. COPY ALSO PRINTED AND PLACED IN FRONT OF CHART. IMM 06/20 IN CHART.
[2020-06-20 17:13] LABS: Glucose, Whole Blood 182 mg/dL (60-115)
--- NOTE | 2020-06-20 19:47 | PC.NURSE ---
0730- Pt has youth nutritional monitor order. Dr. Gr notified, stated pt does not need youth nutritional monitor. Will continue to monitor.
--- NOTE | 2020-06-20 19:48 | PC.NURSE ---
1630- Pt O2 in the 70s. Pt had oxygen off when nurses aid entered the room. Oxygen placed back on pt, O2 increased to 4L and pt returned to 92%. Pt c/o being dizzy. States her chest hurts. Nursing supervisory cbp officer in room. Dr. Gr made aware. EKG ordered. EKG completed. Dr. Gr stated to continue to monitor 1700- Pt denying any chest pain, poor historian. Will continue to monitor.
[2020-06-20 20:55] LABS: Glucose, Whole Blood 229 mg/dL (60-115)
[2020-06-20] MEDS: Temazepam 15 MG CAPSULE PO (21:58)
[2020-06-21] MEDS: Heparin Sodium,Porcine 5,000 UNIT/ML VIAL 5000 UNIT SUBCUT ×2 (01:28→13:14)
[2020-06-21 03:12] VITALS: BP 148/72; PULSE 82; RESP 18; TEMP 36.7; O2SAT 96
[2020-06-21] MEDS: Lactated Ringers 1,000 ML 100 ML IVCONT (03:27)
[2020-06-21 05:24] LABS: MANUAL DIFF FLAG NO
[2020-06-21] MEDS: cefTRIAXone sodium 1 GM in 0.9 % Sodium Chloride 50 ML IV (05:32)
[2020-06-21 05:35] LABS: Basophils Absolute Auto 0.1 X10*3/uL (0.0-0.2); Basophils Percent Auto 0.6 % (0-2); Eosinophils Absolute Auto 0.3 X10*3/uL (0.0-0.4); Eosinophils Percent Auto 3.2 % (0-4); Hematocrit 30.1 % (37-47); Imm Gran Abs Auto 0.03 X10*3/uL (0.00-0.03); Imm Gran Pct Auto 0.3 % (0.0-0.4); Lymphocytes Absolute Auto 2.1 X10*3/uL (1.2-4.9); Lymphocytes Percent Auto 21.6 % (20-40); Mean Corpuscular HGB Conc 29.9 g/dl (31.0-35.0); Mean Corpuscular Hemoglobin 23.8 pg (27.0-33.0); Mean Corpuscular Volume 79.6 fL (80-98); Mean Platelet Volume 9.8 fL (9.4-12.3); Monocytes Absolute Auto 0.8 X10*3/uL (0.1-1.2); Neutrophils Absolute Auto 6.5 X10*3/uL (2.0-8.3); Neutrophils Percent Auto 66.3 % (45-73); Platelet Count 307 X10*3/uL (160-400); Red Blood Count 3.78 X10*6/uL (4.20-5.50); White Blood Count 9.8 X10*3/uL (4.8-10.8)
[2020-06-21 05:54] LABS: Anion Gap 15 (12-20); Blood Urea Nitrogen 12 mg/dL (9-16); Calcium 7.8 mg/dL (8.4-10.2); Carbon Dioxide 28 mmol/L (22-29); Chloride 101 mmol/L (96-108); Creatinine Clr Calc Pharmacy 47.1; Estimated Glomerular Filt Rate > 60; Glucose Random 114 mg/dL (60-115); Potassium 3.5 mmol/l (3.3-5.1); Sodium 140 mmol/L (135-145)
[2020-06-21 08:00] VITALS: BP 137/55; PULSE 80; RESP 20; TEMP 36.7; O2SAT 91
[2020-06-21 08:24] LABS: Glucose, Whole Blood 122 mg/dL (60-115)
[2020-06-21] MEDS: Aspirin 81 MG TAB.CHEW PO (09:28)
[2020-06-21] MEDS: Sertraline HCL 50 MG TABLET PO (09:28)
[2020-06-21] MEDS: Docusate Sodium 100 MG CAPSULE PO (09:28)
[2020-06-21] MEDS: Clopidogrel Bisulfate 75 MG TABLET PO (09:28)
[2020-06-21 09:29] VITALS: BP 137/55; PULSE 80
[2020-06-21] MEDS: Furosemide 40 MG TABLET PO (09:29)
[2020-06-21] MEDS: amLODIPine Besylate 5 MG TABLET PO (09:29)
--- NOTE | 2020-06-21 09:37 | MHC.CM.PN ---
[facility] FIRST CHOICE) SON MARCOS (IN ROOM) IS AWARE THAT [facility] IS REQUESTING A COPY OF THE [employer] APPLICATION, WHICH HE ANTICIPATES RECEIVING IN THE MAIL THIS WEEK. PT EVAL UPLOADED TO BOTH FACILITIES
[2020-06-21 12:00] VITALS: BP 142/67; PULSE 71; RESP 20; TEMP 36.6; O2SAT 90
[2020-06-21 12:31] LABS: Glucose, Whole Blood 195 mg/dL (60-115)
--- NOTE | 2020-06-21 13:10 | PM.DS ---
DS: Providers Provider Date of admission: 06/20/20 00:25 Primary care physician: Unknown Physician DS: Diagnosis Discharge Diagnosis (1) Syncope and collapse: Status: Acute (2) Acute UTI: Status: Acute (3) Acute metabolic encephalopathy: Status: Acute (4) HTN (hypertension): Status: Acute (5) Diabetes: Status: Acute DS: Summary Hospital Course Hospital Course: patient was admitted for metabolic encephalopathy thought to be secondary to urinary tract infection. She was given IV ceftriaxone and symptoms resolved. Patient still displays hallucinations, fluctuating mood, consistent with dementia and possible delirium. This is likely chronic and progressive without obvious reversible etiology. plan is to discharge to retirement facility for physical therapy With possible transition to long-term care. she will have 3 more days of p.o. Ceftin. Time Spent with Patient Time attestation: Total time spent providing and/or coordinating discharge services: Physical Exam Vital Signs: Vital Signs: Vital Signs Temp Pulse Resp BP Pulse Ox 06/21/20 12:00 97.9 F 71 20 142/67 H 90 L 06/21/20 09:29 80 137/55 L 06/21/20 08:00 98.0 F 80 20 137/55 L 91 L 06/21/20 03:12 98.0 F 82 18 148/72 H 96 06/20/20 23:14 98.0 F 70 18 141/61 H 95 06/20/20 19:51 98.4 F 83 22 H 140/73 H 91 L 06/20/20 16:00 98.0 F 84 16 120/55 L 91 L Body Mass Index 17.7 General: Alert confused Resp: CTA bilateral CVS: S1,S2,RRR GI: soft, non tender, non distended Neuro: motor grossly intact Psych: impaired insight, active hallucinations DS: Data Data Completed and Pending Labs on day of discharge: Labs from last 24 hours 06/21/20 06/21/20 06/21/20 12:15 08:08 04:36 WBC RBC Hgb Hct MCV MCH MCHC RDW Plt Count MPV Immature Gran % (Auto) Neut % (Auto) Lymph % (Auto) [place] % (Auto) Eos % (Auto) Baso % (Auto) Lymph # (Auto) [place] # (Auto) Eos # (Auto) Baso # (Auto) Abs Immat Gran (auto) Absolute Neuts (auto) Absolute Nucleated RBC Nucleated RBC % (auto) Sodium 140 Potassium 3.5 D Chloride 101 Carbon Dioxide 28 Anion Gap 15 BUN 12 Creatinine 0.77 Estim Creat Clear Calc 47.1 Estimated GFR > 60 POC Glucose 195 H 122 H Random Glucose 114 Calcium 7.8 L 06/21/20 06/20/20 06/20/20 04:36 20:48 17:03 WBC 9.8 RBC 3.78 L Hgb 9.0 L Hct 30.1 L MCV 79.6 L MCH 23.8 L MCHC 29.9 L RDW 21.0 H Plt Count 307 MPV 9.8 Immature Gran % (Auto) 0.3 Neut % (Auto) 66.3 Lymph % (Auto) 21.6 [place] % (Auto) 8.0 Eos % (Auto) 3.2 Baso % (Auto) 0.6 Lymph # (Auto) 2.1 [place] # (Auto) 0.8 Eos # (Auto) 0.3 Baso # (Auto) 0.1 Abs Immat Gran (auto) 0.03 Absolute Neuts (auto) 6.5 Absolute Nucleated RBC 0.000 Nucleated RBC % (auto) 0.0 Sodium Potassium Chloride Carbon Dioxide Anion Gap BUN Creatinine Estim Creat Clear Calc Estimated GFR POC Glucose 229 H 182 H Random Glucose Calcium Preliminary micro results at discharge 06/20/20 01:25 Blood Culture - Preliminary Blood - Venous No growth after 24 hours. 06/20/20 01:25 Blood Culture - Preliminary Blood - Venous No growth after 24 hours. Discharge Plan Discharge Patient Disposition: [facility] Referrals: Physician,Unknown [Primary Care Provider] - Discharge Medications: New cefuroxime axetil 250 mg tablet 250 mg PO BID Qty: 6 RF: 0 Continued aspirin 81 mg Tablet 81 mg PO DAILY RF: 0 gabapentin 100 mg Capsule 100 mg PO TID RF: 0 glipizide 5 mg Tablet 5 mg PO BID RF: 0 furosemide [Lasix] 40 mg Tablet 40 mg PO DAILY RF: 0 ropinirole 3 mg Tablet 3 mg PO DAILY RF: 0 clopidogrel 75 mg Tablet 75 mg PO DAILY RF: 0 amlodipine 5 mg Tablet 5 mg PO DAILY RF: 0 simvastatin 40 mg Tablet 40 mg PO DAILY RF: 0 temazepam 15 mg Capsule 15 mg PO BEDTIME PRN (Reason: Insomnia) RF: 0 sertraline 50 mg Tablet 50 mg PO DAILY RF: 0 lorazepam 1 mg Tablet 1 mg PO TID PRN (Reason: Anxiety) Qty: 10 RF: 0 potassium chloride 20 mEq Packet 20 meq PO DAILY RF: 0 famotidine 20 mg Tablet 20 mg PO DAILY RF: 0 ferrous sulfate 324 mg (65 mg iron) Tablet,Delayed Release (Dr/Ec) 324 mg PO DAILY RF: 0 Discharge Orders: Discharge Order (Routine); Ordered 06/21/20 Ordered By: Rock Berman Activity on Discharge: As tolerated Visit Report Forms: Patient Portal Discharge page Care Plan Goals: recovery Health Concerns: dementia Plan of Treatment: 3 more days of ceftin
[2020-06-21] MEDS: Insulin Lispro 100 UNIT/ML 3 ML VIAL SUBCUT (13:14)
--- NOTE | 2020-06-21 13:52 | MHC.CM.ED ---
PATIENT WILL DISCHARGE TO [facility] FOR 16:00 TODAY. [facility] TO PROVIDE TRANSPORT. RN, UNIT, AND SON, MARCOS (IN ROOM) AWARE OF THE PLANS.
[2020-06-21] MEDS: 0.9 % Sodium Chloride Flush 3 ML SYRINGE IVFLUSH (15:33)
[2020-06-21 16:00] VITALS: BP 118/6; PULSE 80; RESP 20; TEMP 36.3; O2SAT 92
== END 2020-06-21 16:30 | disposition skilled nursing facility (03) | DRG 689 ==
LOC: HO.ED 23:28 → HO.S3 06-20 00:47
PROVIDERS: Internal Medicine; Admitting Provider Internal Medicine; Emergency Provider Internal Medicine; Visit Provider Internal Medicine
DX: N39.0 Urinary tract infection, site not specified (principal); G93.41 Metabolic encephalopathy; I50.32 Chronic diastolic (congestive) heart failure; F05 Delirium due to known physiological condition; F41.9 Anxiety disorder, unspecified; I25.10 Atherosclerotic heart disease of native coronary artery without angina pectoris; G25.81 Restless legs syndrome; Z96.642 Presence of left artificial hip joint; Z99.81 Dependence on supplemental oxygen; Z96.652 Presence of left artificial knee joint; I11.0 Hypertensive heart disease with heart failure; Z20.828 Contact with and (suspected) exposure to other viral communicable diseases; E11.9 Type 2 diabetes mellitus without complications; F03.90 Unspecified dementia, unspecified severity, without behavioral disturbance, psychotic disturbance, mood disturbance, and anxiety; Z88.5 Allergy status to narcotic agent; Z79.82 Long term (current) use of aspirin; Z79.02 Long term (current) use of antithrombotics/antiplatelets; Z79.899 Other long term (current) drug therapy
CPT/HCPCS: 11104; 36415; 71045; 80048; 80076; 81001; 82947; 83605; 84484; 85025; 87040; 87086; 93005; 96361; 96365; 97162; 99285; J0696; U0003

== ENCOUNTER 2020-07-23 14:56 | Outpatient (REF) | payer MEDICARE, SELFPAY | END 2020-07-23 14:57 | disposition home or self-care (01) | LOC: HO.HVNA 14:56 | PROVIDERS: Visit Provider Internal Medicine Hematology & Oncology | DX: R19.7 Diarrhea, unspecified (principal) | CPT/HCPCS: U0003 ==

== ENCOUNTER 2020-08-07 18:12 | Emergency (ER) | payer MEDICARE, SELFPAY ==
[2020-08-07 18:24] VITALS: BP 107/48; PULSE 96; RESP 24; TEMP 36.9; O2SAT 94; BMI 31.1
--- NOTE | 2020-08-07 18:34 | PC.NURSE ---
pt with staff at this time, waiting eval to see if she will need 1:1, denies si/hi
--- NOTE | 2020-08-07 19:42 | PC.NURSE ---
This RN spoke with hospice nurse Aure. 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 States pt was COVID + on 07/23 phone number is [phone]
[2020-08-07 20:08] VITALS: BP 142/61; PULSE 85; RESP 18; TEMP 36.5; O2SAT 95
--- NOTE | 2020-08-07 20:50 | PC.NURSE ---
Pt requesting to use the bathroom, assisted OOB onto commode. Pt extremely weak, requiring a 1-2 assist. UA obtained and sent. Pt assisted back into bed in POC. Pt requesting PO and questioning plan of care. Continue to monitor.
--- NOTE | 2020-08-07 21:12 | PC.NURSE ---
Pt provided with a sandwich, jello and beverages per request.
--- NOTE | 2020-08-07 21:16 | ED_ITS ---
HPI - Psych General Chief Complaint: Psychiatric Symptoms Stated Complaint: ams Time Seen by Provider: 08/07/20 18:59 Source: patient and EMS Mode of arrival: EMS Limitations: no limitations History of Present Illness HPI Narrative: Patient comes to the emergency room by EMS. Patient is a hospice patient at home, DNR DNI do not transfer, however earlier this afternoon patient had a verbal altercation with her son, threatened to blow herself up, the police was called and was [place] [employer]. On arrival to the emergency room, patient is crying, stating that she is very sorry that she got into an argument with her so n, states she said things that she does not mean, stating she is very grateful how much her son cares for her and is very sorry about all the things she said to him earlier this afternoon. Patient has no complaints. Patient denies suicidal or homicidal ideation Related Data Home Medications Medication Instructions Recorded Confirmed amlodipine 5 mg PO DAILY 05/23/20 06/20/20 aspirin 81 mg PO DAILY 05/23/20 06/20/20 clopidogrel 75 mg PO DAILY 05/23/20 06/20/20 furosemide [Lasix] 40 mg PO DAILY 05/23/20 06/20/20 gabapentin 100 mg PO TID 05/23/20 06/20/20 glipizide 5 mg PO BID 05/23/20 06/20/20 ropinirole 3 mg PO DAILY 05/23/20 06/20/20 sertraline 50 mg PO DAILY 05/23/20 06/20/20 simvastatin 40 mg PO DAILY 05/23/20 06/20/20 temazepam 15 mg PO BEDTIME PRN 05/23/20 06/20/20 famotidine 20 mg PO DAILY 06/20/20 06/20/20 ferrous sulfate 324 mg PO DAILY 06/20/20 06/20/20 potassium chloride 20 meq PO DAILY 06/20/20 06/20/20 Previous Rx's Medication Instructions Recorded lorazepam 1 mg PO TID PRN #10 tab 05/25/20 cefuroxime axetil 250 mg PO BID #6 tab 06/21/20 Allergies Allergy/AdvReac Type Severity Reaction Status Date / Time codeine [Codeine] Allergy Mild HEADACHE, Verified 05/23/20 17:00 RASH, NAUSEA baclofen Allergy Unknown tremors Verified 04/01/20 00:00 Review of Systems Review of Systems: Constitutional : No Weight loss, No Fever, No Chills, No Night Sweats, No Fatigue, No Malaise ENT/Mouth : No Hearing loss, No Ear Pain, No Nasal Congestion, No Sinus Pain, No Hoarseness, No sore throat, No Rhinorrhea, No Swallowing Difficulty Eyes: No Eye Pain, No Swelling, No Redness, No Foreign Body, No Discharge, No Vision Changes Cardiovascular : No Chest Pain, No SOB, No Dyspnea on Exertion, No Orthopnea, No Edema, No Palpitations Respiratory : No Cough, No Sputum, No Wheezing, No Smoke Exposure, No Dyspnea Gastrointestinal : No Nausea, No Vomiting, No Diarrhea, No Constipation, No abdominal Pain, No Hematochezia, No Melena Genitourinary : no irregular bleeding, No Dysuria, No Urinary Frequency, No Hematuria, No Urinary Incontinence, No Urgency, No Flank Pain, No Urinary Flow Changes, No Hesitancy Musculoskeletal : No joint pain, No Myalgias, No Joint Swelling Skin : No Skin Lesions, No rash Neuro : No Weakness, No Numbness, No Paresthesias, No Loss of Consciousness, No Dizziness, No Headache Psych : No Anxiety/Panic, No Depression, No SI/HI/AH/VH, No Social Issues, Heme/Lymph: No Bruising, No Bleeding,No Lymphadenopathy Endocrine : No Polyuria, No Polydipsia, No Temperature Intolerance [facility] Past Medical History Medical History Anxiety CAD (coronary artery disease) Carpal tunnel syndrome Chronic back pain Chronic respiratory failure with hypoxia, on home O2 therapy COPD (chronic obstructive pulmonary disease) CVA (cerebral vascular accident) Diabetes Diastolic CHF HTN (hypertension) Hyperlipemia Interstitial lung disease Nonepileptic episode Restless leg Unwitnessed fall Surgical History H/O carotid endarterectomy History of total left hip arthroplasty S/P cholecystectomy Social History Social History Household Members: Family Housing: House Alcohol intake: unknown Smoking Status: Former smoker Second Hand Smoke Exposure: No Advance Directives: No Advance Directives Information Provided: Yes service: No Current occupational status: retired Physical Exam Vital Signs: Vital Signs: Last Vital Signs Temp 97.7 F 08/07/20 20:08 Pulse 85 08/07/20 20:08 Resp 18 08/07/20 20:08 BP 142/61 H 08/07/20 20:08 Pulse Ox 95 08/07/20 20:08 Body Mass Index 31.1 Appearance: Alert. Oriented X2. No acute distress. Teary Eyes: Pupils equal, round and reactive to light. Neck: Normal inspection. Neck supple. No lymph nodes noted. No crepitus CVS: Normal heart rate and rhythm. Pulses normal. Normal S1 and S2 Respiratory: No respiratory distress. Breath sounds normal. No Wheezing. No rales Abdomen: Soft and nontender. No rigidity. No distention. good BS x4 Skin: Skin warm and dry. Normal skin color. Normal skin turgor. Extremities: No lower extremity edema. No lower extremity edema. No Lacerations. No Rash Neuro: Oriented X 2. No motor deficit. No sensory deficit. Moving all extermities. No slurred speech. Course Course Course Narrative: Patient does not have a UTI The care team called, at this time, the patient does not be seen by the care team, patient is a hospice patient, unlikely that she will be going to any psychiatric facility. Besides, patient is alert and oriented, she is aware of what happened, states it was a misunderstanding with her son, denies any thoughts of hurting herself or others MDM - Psych Restraints Face to Face Assessment: Face to Face Assessment: Current Situation: After assessment of the patient, a review of the pertinent medical record and a discussion with nursing staff, I feel the patient requires a restrain intervention. Reaction To: [] Medical Condition: [] Behavioral State: [] Continued Need: [] Lab Data Labs: Lab Results 08/07/20 Range/Units 20:55 Urine Color YELLOW Urine Appearance CLEAR Urine pH 6.5 (5.0-8.0) Ur Specific [place] 1.010 (1.005-1.025) Urine Protein NEG (NEG-TRACE) MG/DL Urine Glucose (UA) NEG (NEG) MG/DL Urine Ketones NEG (NEG) MG/DL Urine Blood NEG (NEG) Urine Nitrite NEG (NEG) Ur Leukocyte Esterase NEG (NEG) Discharge Plan Discharge Clinical Impression: Acute anxiety Patient Disposition: Home, Self-Care Instructions: Anxiety (ED) Additional Instructions: Please follow-up with your primary care physician tomorrow. If you have any worsening or new symptoms, please return to the emergency room or call 911 Prescriptions: No Action aspirin 81 mg Tablet 81 mg PO DAILY RF: 0 gabapentin 100 mg Capsule 100 mg PO TID RF: 0 glipizide 5 mg Tablet 5 mg PO BID RF: 0 furosemide [Lasix] 40 mg Tablet 40 mg PO DAILY RF: 0 ropinirole 3 mg Tablet 3 mg PO DAILY RF: 0 clopidogrel 75 mg Tablet 75 mg PO DAILY RF: 0 amlodipine 5 mg Tablet 5 mg PO DAILY RF: 0 simvastatin 40 mg Tablet 40 mg PO DAILY RF: 0 temazepam 15 mg Capsule 15 mg PO BEDTIME PRN (Reason: Insomnia) RF: 0 sertraline 50 mg Tablet 50 mg PO DAILY RF: 0 lorazepam 1 mg Tablet 1 mg PO TID PRN (Reason: Anxiety) Qty: 10 RF: 0 potassium chloride 20 mEq Packet 20 meq PO DAILY RF: 0 famotidine 20 mg Tablet 20 mg PO DAILY RF: 0 ferrous sulfate 324 mg (65 mg iron) Tablet,Delayed Release (Dr/Ec) 324 mg PO DAILY RF: 0 cefuroxime axetil 250 mg tablet 250 mg PO BID Qty: 6 RF: 0
--- NOTE | 2020-08-07 21:16 | PC.NURSE ---
Per MD, plan for discharge once urine is resulted.
[2020-08-07 21:17] LABS: Glucose Urine UA NEG (NEG); Leukocyte Esterase Urine NEG (NEG); Nitrite Urine NEG (NEG); PH 6.5 (5.0-8.0); Urine Blood NEG (NEG); Urine Ketones NEG (NEG); Urine Protein NEG (NEG-TRACE)
[2020-08-07 21:20] LABS: Appearance Urine CLEAR; Color Urine YELLOW
--- NOTE | 2020-08-07 22:05 | PC.NURSE ---
Son called for transport home. Son explains pt that is on hospice due to COPD/CHF. Per son, he is 5 minutes out.
--- NOTE | 2020-08-07 22:07 | PC.NURSE ---
radioisotope technologist at bedside to update VS and prepare pt for discharge.
[2020-08-07 22:09] VITALS: BP 142/56; PULSE 90; RESP 24; TEMP 36.4; O2SAT 95
== END 2020-08-07 22:00 | disposition home or self-care (01) ==
PROVIDERS: Emergency Provider Emergency Medicine
DX: F41.9 Anxiety disorder, unspecified (principal); E11.9 Type 2 diabetes mellitus without complications; I10 Essential (primary) hypertension; Z79.899 Other long term (current) drug therapy; Z79.82 Long term (current) use of aspirin
CPT/HCPCS: 81003; 99284

== ENCOUNTER 2020-08-27 16:04 | Outpatient (REF) | payer MEDICARE, SELFPAY ==
[2020-08-27 16:15] LABS: Glucose Urine UA NEG (NEG); Leukocyte Esterase Urine NEG (NEG); Nitrite Urine NEG (NEG); Specific Gravity - Urine 1.015 (1.005-1.025); Urine Blood NEG (NEG); Urine Ketones NEG (NEG); Urine Protein NEG (NEG-TRACE)
[2020-08-27 16:36] LABS: Appearance Urine CLEAR; Color Urine YELLOW
[2020-08-27 17:03] LABS: RBC Urine 0 /HPF (0); Squamous Epithelial Cell Urine TRACE /LPF; WBC Urine 0 /HPF (0-4)
== END 2020-08-27 16:05 | disposition home or self-care (01) ==
LOC: HO.LNP 16:04
PROVIDERS: Visit Provider Internal Medicine Hematology & Oncology
DX: N39.0 Urinary tract infection, site not specified (principal); I50.9 Heart failure, unspecified; R41.0 Disorientation, unspecified; I10 Essential (primary) hypertension
CPT/HCPCS: 81001